=== PATIENT | female | born 1950 | race Caucasian/White ===

== ENCOUNTER 2016-06-08 17:56 | Emergency (ER) | payer OTHER ==
[2016-06-08] MEDS ORDERED: SODIUM CHLORIDE 0.9% 1,000 ML IV ONE (19:30)
== END 2016-06-08 22:18 | disposition home or self-care (01) ==
DX: R63.0 Anorexia (principal); G20 Parkinson's disease; Z85.3 Personal history of malignant neoplasm of breast

== ENCOUNTER 2016-08-03 17:44 | Emergency (ER) | payer OTHER ==
[2016-08-03] MEDS ORDERED: SODIUM CHLORIDE 0.9% 1,000 ML IV ONE (18:51)
[2016-08-03] MEDS ORDERED: BENZONATATE 100 MG CAPSULE PO ONE (21:15)
== END 2016-08-03 22:06 | disposition home or self-care (01) ==
DX: E86.0 Dehydration (principal); R63.0 Anorexia; G20 Parkinson's disease; Z85.3 Personal history of malignant neoplasm of breast; Z90.10 Acquired absence of unspecified breast and nipple
CPT/HCPCS: 36415; 51701; 51798; 80053; 81003; 83690; 85025; 96360; 99284; A9270

== ENCOUNTER 2016-08-12 13:55 | Emergency (ER) | payer OTHER ==
[2016-08-12] MEDS ORDERED: SODIUM CHLORIDE 0.9% 1,000 ML IV ONE (14:59)
== END 2016-08-12 16:24 | disposition home or self-care (01) ==
DX: R32 Unspecified urinary incontinence (principal); D72.829 Elevated white blood cell count, unspecified; G31.09 Other frontotemporal neurocognitive disorder; F02.80 Dementia in other diseases classified elsewhere, unspecified severity, without behavioral disturbance, psychotic disturbance, mood disturbance, and anxiety; Z85.3 Personal history of malignant neoplasm of breast; Z90.10 Acquired absence of unspecified breast and nipple

== ENCOUNTER 2017-05-25 14:14 | Emergency (ER) | payer MEDICARE, OTHER ==
--- NOTE | 2017-05-25 14:55 | ED Physician Documentation ---
PD HPI OPHTHO - Stated complaint Stated Complaint: BILAT EYE PX - History obtained from History obtained from: Patient - History of Present Illness Timing - onset: How many days ago (2) Timing - duration: Days (1-2) Timing - details: Abrupt onset, Still present (noted redness with discharge of right eye the past 1-2 days and now left eye starting to be irritated and red too.) Location: Both Quality / character: Burning, Aching Associated symptoms: Redness, Discharge, Matting. No: FB sensation, Photophobia , Loss of vision Contributing factors: Wears glasses. No: FB, Wears contacts Similar symptoms before: Has not had sx before Recently seen: Not recently seen Review of Systems Constitutional: denies: Fever, Chills Nose: denies: Rhinorrhea / runny nose, Congestion Throat: denies: Sore throat Respiratory: denies: Cough Skin: denies: Rash, Lesions PD PAST MEDICAL HISTORY - Past Medical History Cardiovascular: None Respiratory: None Neuro: Parkinson's, Fainting Endocrine/Autoimmune: None GI: None MEDICAL ANTHROPOLOGIST: Breast cancer Psych: Depression Musculoskeletal: None Derm: None - Past Surgical History Past Surgical History: Yes General: Cholecystectomy /MEDICAL ANTHROPOLOGIST: Mastectomy - Present Medications Home Medications: Ambulatory Orders Medication Instructions Recorded Confirmed Sertraline [Zoloft] 25 mg ORAL DAILY 06/26/15 05/25/17 Donepezil [Aricept] 10 mg PO DAILY 06/08/16 05/25/17 Megestrol Acetate 40 mg PO DAILY 05/25/17 05/25/17 Memantine [Namenda] 5 mg PO DAILY 05/25/17 05/25/17 Mirabegron [Myrbetriq] 50 mg PO DAILY 05/25/17 05/25/17 Sulfacetamide 10% Ophth Drops 2 drops EACHEYE Q2H #1 bottle 05/25/17 [Sulfamide 10% Ophth Drops] Tamoxifen 20 mg PO DAILY 05/25/17 05/25/17 - Allergies Allergies/Adverse Reactions: Allergies Allergy/AdvReac Type Severity Reaction Status Date / Time No Known Drug Allergies Allergy Verified 05/25/17 15:09 - Social History Does the pt smoke?: No Smoking Status: Never smoker Does the pt drink ETOH?: No Does the pt have substance abuse?: No - Immunizations Immunizations are current?: Yes - POLST Patient has POLST: No PD ED PE NORMAL - Vitals Vital signs reviewed: Yes - General General: Alert and oriented X 3, No acute distress, Well developed/nourished - HEENT HEENT: PERRL, EOMI, Ears normal, Pharynx benign - Neck Neck: Supple, no meningeal sign, No adenopathy PD ED PE EXPANDED - Eyes Eyes: Both eyes, Injected conj/sclera, Exudate (mostly right), Anterior chambers clear, Normal fundi. No: Conj/sclera FB Results - Vitals Vitals: Vital Signs - 24 hr 05/25/17 14:58 Temperature 36.9 C Heart Rate 85 Respiratory 16 Rate Blood Pressure 129/73 O2 Saturation 95 Oxygen O2 Source Room air Departure - Departure Disposition: 01 Home, Self Care Clinical Impression: Conjunctivitis Qualifiers: Conjunctivitis type: acute Acute conjunctivitis type: bacterial Laterality: bilateral Qualified Code(s): H10.33 - Unspecified acute conjunctivitis, bilateral Condition: Stable Record reviewed to determine appropriate education?: Yes Instructions: ED Conjunctivitis Bacterial Follow-Up: Bridgette Reynolds MD [Primary Care Provider] - Prescriptions: Sulfacetamide 10% Ophth Drops [Sulfamide 10% Ophth Drops] 2 drops EACHEYE Q2H # 1 bottle Comments: Use the antibiotic eyedrop every 2-3 hours while awake for the first 2 days in both eyes and then to the right eye 4 times a day for another 3 days for a total of 5 days. Recheck if not improving over the next couple of days. Tylenol or Ibuprofen if needed for pains. Recheck if worsening symptoms or any light sensitivity or eye pain. Discharge Date/Time: 05/25/17 15:37
[2017-05-25 15:09] VITALS: BP 129/73
== END 2017-05-25 15:37 | disposition home or self-care (01) ==
LOC: ED 14:14
DX: H10.33 Unspecified acute conjunctivitis, bilateral (principal); G20 Parkinson's disease; Z85.3 Personal history of malignant neoplasm of breast; Z90.10 Acquired absence of unspecified breast and nipple
CPT/HCPCS: 99283

== ENCOUNTER 2017-07-05 15:47 | Emergency (ER) | payer OTHER ==
--- NOTE | 2017-07-05 16:09 | ED Physician Documentation ---
History of Present Illness - Stated complaint Stated Complaint: L ARM PAIN - Chief complaint Chief Complaint: Ext Problem - History obtained from History obtained from: Family (from the d/t dementia) - History of Present Illness Timing: Last night (She is a fairly demented 66-year-old woman who is brought in accompanied by her . She has had decreased range of motion of the left arm since last night and he had concern for stroke. 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 Psych: Depression Musculoskeletal: None Derm: None - Past Surgical History Past Surgical History: Yes General: Cholecystectomy /SLUBBER TENDER: Mastectomy - Present Medications Home Medications: Ambulatory Orders Medication Instructions Recorded Confirmed Sertraline [Zoloft] 25 mg ORAL DAILY 06/26/15 05/25/17 Donepezil [Aricept] 10 mg PO DAILY 06/08/16 05/25/17 Megestrol Acetate 40 mg PO DAILY 05/25/17 05/25/17 Memantine [Namenda] 5 mg PO DAILY 05/25/17 05/25/17 Mirabegron [Myrbetriq] 50 mg PO DAILY 05/25/17 05/25/17 Sulfacetamide 10% Ophth Drops 2 drops EACHEYE Q2H #1 bottle 05/25/17 [Sulfamide 10% Ophth Drops] Tamoxifen 20 mg PO DAILY 05/25/17 05/25/17 - Allergies Allergies/Adverse Reactions: Allergies Allergy/AdvReac Type Severity Reaction Status Date / Time No Known Drug Allergies Allergy Verified 05/25/17 15:09 - Social History Does the pt smoke?: No Smoking Status: Never smoker Does the pt drink ETOH?: No Does the pt have substance abuse?: No - Immunizations Immunizations are current?: Yes - POLST Patient has POLST: No PD ED PE NORMAL - Vitals Vital signs reviewed: Yes - General General: Other (Alert and oriented to person only) - Neck Neck: Supple, no meningeal sign, No bony TTP - Extremities Extremities: Other (When I range her left arm she winces when I get her shoulder up to about 90 and complains of pain in the left shoulder. She has no pronator drift and good poll watcher strength on the left. Otherwise her stroke scale was negative with the exception of disorientation.) Results - Vitals Vitals: Vital Signs - 24 hr 07/05/17 15:55 Temperature 37.0 C Heart Rate 101 H Respiratory 16 Rate Blood Pressure 138/69 H O2 Saturation 100 Oxygen O2 Source Room air - EKG (time done) 1555 Rate: Rate (enter#) (93) Rhythm: NSR Intervals: Other (LAFB) QRS: LVH Ischemia: Normal ST segments Computer interpretation: Agree with computer - Rads (name of study) L shoulder 3v Radiology: EMP read contemporaneously (NAD) PD MEDICAL DECISION MAKING - ED course ED course: She has not been moving her arm for the last day or so. She is fairly demented so history is limited, there was a specific concern for stroke, however examination is consistent with shoulder pain without focal neurologic deficit other than her dementia. Departure - Departure Disposition: 01 Home, Self Care Clinical Impression: Left shoulder pain Qualifiers: Chronicity: acute Qualified Code(s): M25.512 - Pain in left shoulder Condition: Good Record reviewed to determine appropriate education?: Yes Instructions: ED Torn Rotator Cuff Comments: Call your doctor to arrange a follow-up appointment, make the next available appointment. In the interim, return anytime if worse or if new symptoms develop. Your blood pressure was elevated today on check into the emergency department. This does not mean that you have hypertension, it is a common phenomenon to come to the emergency department and have elevated blood pressure. I recommend that you see your primary care physician within the week to have it rechecked when you are feeling better.
[2017-07-05 16:13] VITALS: BP 138/69
--- NOTE | 2017-07-05 17:07 | XRAY Preliminary Report ---
Exam: XR SHOULDER 3 VIEW LT IMPRESSION: 1. Moderate hiatal hernia. 2. Normal left shoulder. [facility] SITE ID: [id number]
--- NOTE | 2017-07-05 17:10 | XRAY Report ---
EXAM: LEFT SHOULDER RADIOGRAPHY EXAM DATE: 07/05/2017 04:42 PM. CLINICAL HISTORY: Dementia. Left shoulder pain for one day. No known injury. COMPARISON: None. TECHNIQUE: 4 views. FINDINGS: Bones: Normal. No fracture or bone lesion. Joints: The glenohumeral and acromioclavicular joints are normal. Type II acromion. Soft tissues: Moderate hiatal hernia. No soft tissue calcifications. IMPRESSION: 1. Moderate hiatal hernia. 2. Normal left shoulder. [facility] Referring Provider Line: [phone] SITE ID: [id number]
== END 2017-07-05 17:23 | disposition home or self-care (01) ==
LOC: ED 15:47
DX: M25.512 Pain in left shoulder (principal); R03.0 Elevated blood-pressure reading, without diagnosis of hypertension; I44.4 Left anterior fascicular block; R94.31 Abnormal electrocardiogram [ECG] [EKG]; K44.9 Diaphragmatic hernia without obstruction or gangrene; F03.90 Unspecified dementia, unspecified severity, without behavioral disturbance, psychotic disturbance, mood disturbance, and anxiety; Z85.3 Personal history of malignant neoplasm of breast
CPT/HCPCS: 93005; 99283

== ENCOUNTER 2021-05-05 13:42 | Outpatient (CLI) | payer OTHER | END 2021-05-05 13:43 | disposition critical access hospital (66) | LOC: EMS 13:42 | DX: R53.1 Weakness (principal); R63.8 Other symptoms and signs concerning food and fluid intake; Z74.01 Bed confinement status | CPT/HCPCS: A0425; A0429 ==

== ENCOUNTER 2021-05-05 14:21 | Emergency (ER) | payer OTHER ==
[2021-05-05 15:33] LABS: BASOPHILS # (AUTO) 0.1 10^3/uL (0.0-0.1); BASOPHILS % (AUTO) 0.8 %; EOSINOPHILS # (AUTO) 0.1 10^3/uL (0.0-0.7); EOSINOPHILS % (AUTO) 0.5 %; HCT - HEMATOCRIT 38.2 % (37.0-47.0); HGB - HEMOGLOBIN 12.4 g/dL (12.0-16.0); LYMPHOCYTES # (AUTO) 1.9 10^3/uL (1.5-3.5); LYMPHOCYTES % (AUTO) 17.4 %; MEAN CORPUSCULAR HEMOGLOBIN 31.2 pg (27.0-31.0); MEAN CORPUSCULAR HGB CONC 32.5 g/dL (32.0-36.0); MEAN CORPUSCULAR VOLUME 96.2 fL (81.0-99.0); MEAN PLATELET VOLUME 10.1 fL (7.9-10.8); MONOCYTES # (AUTO) 0.7 10^3/uL (0.0-1.0); MONOCYTES % (AUTO) 6.5 %; NEUTROPHILS % (AUTO) 74.1 %; PLT - PLATELET COUNT 194 10^3/uL (130-450); RED BLOOD COUNT 3.97 10^6/uL (4.20-5.40); RED CELL DISTRIBUTION WIDTH 12.7 % (12.0-15.0); WHITE BLOOD COUNT 10.8 x10^3/uL (4.8-10.8)
--- NOTE | 2021-05-05 15:34 | ED Physician Documentation ---
History of Present Illness - Stated complaint Stated Complaint: WEAKNESS - Chief complaint Chief Complaint: Neuro - Additonal information Additional information: 70-year-old female was brought to the emergency department for evaluation of in creased weakness. History is obtained from the chart. Patient has a history of previous CVA with aphasia and well as frontal/temporal dementia. At baseline she has left-sided deficits, left upper extremity contracture right-sided facial droop. Per EMS the patient is typically able to transfer and pivot bed has been unable to today. EMS describes a very poor living situation. Reported that the floor of the home was covered in dog feces the patient had very poor hygiene and was also covered in feces herself. 1605: I have spoken with the Bill at the bedside. He reports that over the last few weeks patient has been getting progressively weaker. He does not desire her to be placed in a long-term facility he would like to care for her at home. 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 Psych: Depression Musculoskeletal: None Derm: None - Past Surgical History Past Surgical History: Yes General: Cholecystectomy /FENCE MANUFACTURE SUPERVISOR: Mastectomy - Present Medications Home Medications: Ambulatory Orders Medication Instructions Recorded Confirmed Sertraline [Zoloft] 25 mg ORAL DAILY 06/26/15 05/25/17 Donepezil [Aricept] 10 mg PO DAILY 06/08/16 05/25/17 Megestrol Acetate 40 mg PO DAILY 05/25/17 05/25/17 Memantine [Namenda] 5 mg PO DAILY 05/25/17 05/25/17 Mirabegron [Myrbetriq] 50 mg PO DAILY 05/25/17 05/25/17 Sulfacetamide 10% Ophth Drops 2 drops EACHEYE Q2H #1 bottle 05/25/17 [Sulfamide 10% Ophth Drops] Tamoxifen [Nolvadex] 20 mg PO DAILY 05/25/17 05/25/17 Cefpodoxime Proxetil [Vantin] 100 mg PO Q12H #14 tablet 05/05/21 - Allergies Allergies/Adverse Reactions: Allergies Allergy/AdvReac Type Severity Reaction Status Date / Time No Known Drug Allergies Allergy Verified 05/25/17 15:09 - Social History Does the pt smoke?: No Smoking Status: Never smoker Does the pt drink ETOH?: No Does the pt have substance abuse?: No - Immunizations Immunizations are current?: Yes - POLST Patient has POLST: No PD ED PE EXPANDED - General General: Alert, Disheveled, poorly kept (Feet very dirty with feces on the bottom. Poor hygiene.) - Cardiac Cardiac: Regular Rate, Pedal strong equal, Cap refill < 2 sec - Respiratory Respiratory: Clear to ausultation morgan. No: Distress, Labored - Abdomen Abdomen: Normal Bowel sounds. No: Tender to palpation - Derm Derm: Normal color, Warm and dry, Other (Left buttock a sacral ulceration is noted. Some mild surrounding erythema. Old healing ulcers seen on the sacrum as well.) - Extremities Extremities: Pedal edema bilateral, Pedal Pulses Present - Neuro Neuro: No: CNII-XII intact (Right-sided facial droop at baseline. Left upper extremity contracted and weak at baseline.) - GCS Eye Opening: Spontaneous Motor: Obeys Commands Verbal: Oriented Total: 15 Results - Vitals Vitals: Vital Signs - 24 hr 05/05/21 05/05/21 05/05/21 14:27 15:42 17:19 Temperature 36.4 C L 36.6 C 36.6 C Heart Rate 93 85 81 Respiratory 16 18 19 Rate Blood Pressure 157/102 H 130/100 H 140/98 H O2 Saturation 100 100 100 05/05/21 18:05 Temperature 36.8 C Heart Rate 80 Respiratory 16 Rate Blood Pressure 140/70 H O2 Saturation 98 Oxygen O2 Source Room air - EKG (time done) 1704 Rate: Rate (enter#) (80) Rhythm: NSR [place]: Normal Intervals: Prolonged QT, RBBB, Other (LAFB) QRS: LVH, Poor R wave progression Ischemia: Normal ST segments Compare to prior EKG: Old EKG unavailable Computer interpretation: Agree with computer - Labs Labs: Laboratory Tests 05/05/21 05/05/2121 15:26 15:26 15:26 WBC 10.8 RBC 3.97 L Hgb 12.4 Hct 38.2 MCV 96.2 MCH 31.2 H MCHC 32.5 RDW 12.7 Plt Count 194 MPV 10.1 Neut # (Auto) 8.0 H Lymph # (Auto) 1.9 [place] # (Auto) 0.7 Eos # (Auto) 0.1 Baso # (Auto) 0.1 Absolute Nucleated RBC 0.00 Nucleated RBC % 0.0 Sodium 141 Potassium 3.9 Chloride 108 Carbon Dioxide 24 Anion Gap 9.0 BUN 23 H Creatinine 1.0 Estimated GFR (MDRD) 55 L Glucose 103 H Lactic Acid Calcium 8.9 Total Bilirubin 0.6 AST 45 H ALT 75 H Alkaline Phosphatase 88 Troponin I High Sens Total Protein 6.7 Albumin 3.0 L Globulin 3.7 Albumin/Globulin Ratio 0.8 L Lipase 43 TSH 1.01 Urine Color Urine Clarity Urine pH Ur Specific [place] Urine Protein Urine Glucose (UA) Urine Ketones Urine Occult Blood Urine Nitrite Urine Bilirubin Urine Urobilinogen Ur Leukocyte Esterase Urine RBC Urine WBC Ur Squamous Epith Cells Urine Bacteria Ur Microscopic Review Urine Culture Comments Urine Opiates Screen Ur Oxycodone Screen Urine Methadone Screen Ur Propoxyphene Screen Ur Barbiturates Screen Ur Tricyclics Screen Ur Phencyclidine Scrn Ur Amphetamine Screen U Methamphetamines Scrn U Benzodiazepines Scrn Urine Cocaine Screen U Cannabinoids Screen Ethyl Alcohol < 5.0 05/05/21 05/05/21 05/05/21 15:26 15:26 15:56 WBC RBC Hgb Hct MCV MCH MCHC RDW Plt Count MPV Neut # (Auto) Lymph # (Auto) [place] # (Auto) Eos # (Auto) Baso # (Auto) Absolute Nucleated RBC Nucleated RBC % Sodium Potassium Chloride Carbon Dioxide Anion Gap BUN Creatinine Estimated GFR (MDRD) Glucose Lactic Acid 1.9 Calcium Total Bilirubin AST ALT Alkaline Phosphatase Troponin I High Sens 11.8 Total Protein Albumin Globulin Albumin/Globulin Ratio Lipase TSH Urine Color YELLOW Urine Clarity HAZY Urine pH 5.5 Ur Specific [place] 1.020 Urine Protein NEGATIVE Urine Glucose (UA) NEGATIVE Urine Ketones NEGATIVE Urine Occult Blood SMALL H Urine Nitrite POSITIVE H Urine Bilirubin NEGATIVE Urine Urobilinogen 0.2 (NORMAL) Ur Leukocyte Esterase NEGATIVE Urine RBC 0-5 Urine WBC 6-10 H Ur Squamous Epith Cells FEW Squamous Urine Bacteria Many H Ur Microscopic Review INDICATED Urine Culture Comments INDICATED Urine Opiates Screen NEGATIVE Ur Oxycodone Screen NEGATIVE Urine Methadone Screen NEGATIVE Ur Propoxyphene Screen NEGATIVE Ur Barbiturates Screen NEGATIVE Ur Tricyclics Screen NEGATIVE Ur Phencyclidine Scrn NEGATIVE Ur Amphetamine Screen NEGATIVE U Methamphetamines Scrn NEGATIVE U Benzodiazepines Scrn NEGATIVE Urine Cocaine Screen NEGATIVE U Cannabinoids Screen NEGATIVE Ethyl Alcohol - Rads (name of study) CXR Radiology: Final report received (Moderate sized hiatal hernia slightly increased from prior study. ) CT head Radiology: Final report received (No CT evidence of acute intracranial pathology. Marked diffuse cerebral atrophy and extensive white matter chronic small vessel ischemic changes.) PD MEDICAL DECISION MAKING - ED course Complexity details: reviewed results, re-evaluated patient, considered differential, d/w patient ED course: 70-year-old female who has an underlying history of frontal temporal lobe dementia as well as previous CVAs with noted left-sided deficits and contractures is brought to the emergency department for evaluation of increased weakness. Lengthy discussion with her at the bedside reveals that she is essentially bedbound at this time however over the last week she has had increasing difficulty with movement. She presents with soiled of feces and also has left buttock and sacral ulcers in various stages of healing. Her recognizes that she is beginning to require more care than he can reasonably manage at home. He admits that the home is quite filthy. However he does desire to take her back home. no admittable diagnosis Screening labs today show no leukocytosis. No fevers. A CT of the head shows nothing acute. X-ray is not consistent with pneumonia. I did do an in and out catheterization which is consistent with a urinary tract infection and she will be started on Cefpodoxime. Cx is pending. Patient was given first dose of ceftriaxone here in the ER. Patient was also assessed by social work. Referral will be placed for [facility]. EMS is making an APS referral for their concerns of the poor living conditions at home. Patient was also briefly seen by social work. Please see their note Emergent return precautions were discussed with the at the bedside for a cutely altered mentation, fevers, worsening or progression of her bedsores. Advise very close follow-up with her primary care provider. Departure - Departure Disposition: 01 Home, Self Care Clinical Impression: Sacral decubitus ulcer, stage III UTI (urinary tract infection) Qualifiers: Urinary tract infection type: acute cystitis Hematuria presence: without hematuria Qualified Code(s): N30.00 - Acute cystitis without hematuria Dementia Qualifiers: Dementia type: unspecified type Dementia behavioral disturbance: without be havioral disturbance Qualified Code(s): F03.90 - Unspecified dementia without behavioral disturbance Condition: Stable Record reviewed to determine appropriate education?: Yes Follow-Up: Bridgette Reynolds MD [Primary Care Provider] - Prescriptions: Cefpodoxime Proxetil [Vantin] 100 mg PO Q12H #14 tablet Comments: Joan was seen in the ER today for concerns of increasing weakness. It appears that for quite some time she has basically become bedbound. The labs that we have found today show that she has a urinary tract infection. Please fill the prescription for the Cefpodoxime. This was sent to the [facility] in [place]. The CT of your head does not show anything new though it is obvious over time her dementia and previous strokes have caused some generalized shrinking of her brain. The chest x-ray does not show a pneumonia. EMS was concerned about the sanitary conditions for Joan at home. They have reported to us that they are going to place an Adult Protective Services referral. It is important that you discuss this ED visit with her primary care provider. The care for Joan over time will only increase and you may want to consider utilizing the [facility] senior resources or consider whether or not long-term facility placement in the long-term is going to be important. Any point you find that she develops fevers, has worsening symptoms, uncontrolled vomiting then please return immediately to the ER for a second evaluation. Discharge Date/Time: 05/05/21 18:09
[2021-05-05 15:45] LABS: ALBUMIN/GLOBULIN RATIO 0.8 (1.0-2.2); ALKALINE PHOSPHATASE 88 IU/L (42-121); ALT ALANINE AMINOTRANSFERASE 75 IU/L (10-60); AST ASPARTATE AMINOTRANSFERASE 45 IU/L (10-42); BILIRUBIN,TOTAL 0.6 mg/dL (0.2-1.0); BUN - BLOOD UREA NITROGEN 23 mg/dL (6-20); CALCIUM 8.9 mg/dL (8.5-10.3); CARBON DIOXIDE - CO2 24 mmol/L (21-32); CHLORIDE 108 mmol/L (101-111); ETOH - ETHANOL < 5.0 mg/dL; GFR - MDRD 55 (>89); GLUCOSE 103 mg/dL (70-100); LIPASE 43 U/L (22-51); POTASSIUM 3.9 mmol/L (3.5-5.0); SODIUM 141 mmol/L (135-145); TOTAL PROTEIN 6.7 g/dL (6.7-8.2)
--- NOTE | 2021-05-05 15:58 | XRAY Report ---
PROCEDURE: Chest 1 View X-Ray INDICATIONS: Chest pain TECHNIQUE: One view of the chest was acquired. COMPARISON: 09/21/2013 FINDINGS: Surgical changes and devices: None. Lungs and pleura: No pleural effusions or pneumothorax. Lungs are clear. Mediastinum: Moderate sized hiatal hernia slightly increased to prior. Mediastinal contours otherwise normal. Heart size is normal. Bones and chest wall: No suspicious bony lesions. Overlying soft tissues appear unremarkable. IMPRESSION: Moderate sized hiatal hernia slightly increased from prior study. This represents a potential source of chest pain. Otherwise normal study. Reviewed by: Oleg Morejon MD on 05/05/2021 2:57 PM [place] Approved by: Oleg Morejon MD on 05/05/2021 2:57 PM [facility] Station ID: [id number]
[2021-05-05 16:01] LABS: MUDS CUTOFF CONCENTRATIONS CUTOFF CONC BELOW:
[2021-05-05 16:04] LABS: BILIRUBIN,URINE NEGATIVE (NEGATIVE); GLUCOSE, URINE (UA) NEGATIVE (NEGATIVE); KETONES,URINE (UA) NEGATIVE (NEGATIVE); LEUKOCYTE ESTERASE, URINE NEGATIVE (NEGATIVE); NITRITE,URINE POSITIVE (NEGATIVE); OCCULT BLOOD,URINE SMALL (NEGATIVE); PH,URINE 5.5 PH (5.0-7.5); PROTEIN,URINE NEGATIVE (NEGATIVE); UROBILINOGEN,URINE 0.2 (NORMAL) E.U./dL (NORMAL)
[2021-05-05 16:06] LABS: CLARITY,URINE HAZY (CLEAR)
[2021-05-05 16:17] LABS: BACTERIA,URINE Many /HPF (None Seen); RBC,URINE 0-5 /HPF (0-5); SQUAMOUS EPITHELIAL CELL,UR FEW Squamous (<= Few)
[2021-05-05] MEDS ORDERED: LIDOCAINE 1% 2 ML VIAL MC ONE (16:22)
[2021-05-05] MEDS ORDERED: cefTRIAXone 1 GM VIAL IM STA (16:22)
[2021-05-05 16:25] LABS: AMPHETAMINE SCREEN,URINE NEGATIVE (NEGATIVE); BARBITURATE SCREEN,UR NEGATIVE (NEGATIVE); BENZODIAZEPINES SCREEN, URINE NEGATIVE (NEGATIVE); COCAINE SCREEN URINE NEGATIVE (NEGATIVE); METHADONE SCREEN, URINE NEGATIVE (NEGATIVE); METHAMPHETAMINES SCREEN, URINE NEGATIVE (NEGATIVE); OPIATE SCREEN, URINE NEGATIVE (NEGATIVE); OXYCODONE SCREEN, URINE NEGATIVE (NEGATIVE); PROPOXYPHENE SCREEN, URINE NEGATIVE (NEGATIVE); THC CANNABINOID SCREEN, URINE NEGATIVE (NEGATIVE); TRICYCLIC ANTIDEPRESSANT,URINE NEGATIVE (NEGATIVE)
--- NOTE | 2021-05-05 16:47 | CT Report ---
PROCEDURE: HEAD WO INDICATIONS: increased wekness TECHNIQUE: Noncontrast 4.5 mm thick angled axial sections acquired from the foramen magnum to the vertex. For r adiation dose reduction, the following was used: automated exposure control, adjustment of mA and/or kV according to patient size. COMPARISON: 07/31/2015 FINDINGS: Image quality: Excellent. CSF spaces: Basal cisterns are patent. No extra-axial fluid collections. The ventricles are symmet pankaj in size and shape. Brain: No intracranial bleeds or masses. There is cerebral volume loss for age, with resultant vent ricular and sulcal prominence. There are periventricular and deep white matter chronic small vessel ischemic changes. There is intracranial internal carotid artery atherosclerosis. Skull and face: Calvarium and visualized facial bones appear intact, without suspicious lesions. Sinuses: Visualized sinuses and mastoids are clear. IMPRESSION: 1. No CT evidence of acute intracranial pathology. 2. Marked diffuse cerebral atrophy and extensive white matter chronic small vessel ischemic changes. Reviewed by: Travis Bourne MD on 05/05/2021 4:46 PM PST Approved by: Travis Bourne MD on 05/05/2021 4:46 PM PST Station ID: [id number]
[2021-05-05 18:10] VITALS: BP 140/70
== END 2021-05-05 18:09 | disposition home or self-care (01) ==
LOC: EDUNIT# → ED 14:21
DX: N30.00 Acute cystitis without hematuria (principal); R53.1 Weakness; G31.09 Other frontotemporal neurocognitive disorder; F02.80 Dementia in other diseases classified elsewhere, unspecified severity, without behavioral disturbance, psychotic disturbance, mood disturbance, and anxiety; L89.153 Pressure ulcer of sacral region, stage 3; L89.323 Pressure ulcer of left buttock, stage 3; I69.320 Aphasia following cerebral infarction; I69.392 Facial weakness following cerebral infarction; I69.354 Hemiplegia and hemiparesis following cerebral infarction affecting left non-dominant side; I45.2 Bifascicular block; K44.9 Diaphragmatic hernia without obstruction or gangrene; Z74.01 Bed confinement status
CPT/HCPCS: 36415; 51701; 80053; 80306; 80320; 81001; 81003; 83605; 83690; 84443; 84484; 85025; 87040; 87086; 87181; 93005; 99283; 99284

== ENCOUNTER 2021-05-20 14:40 | Outpatient (CLI) | payer OTHER | END 2021-05-20 14:41 | disposition critical access hospital (66) | LOC: EMS 14:40 | DX: Z74.2 Need for assistance at home and no other household member able to render care (principal) | CPT/HCPCS: A0425; A0429 ==

== ENCOUNTER 2021-05-20 15:21 | Inpatient (IN) | payer OTHER ==
[2021-05-20] MEDS ORDERED: SODIUM CHLORIDE 0.9% 1,000 ML IV STA (15:56)
--- NOTE | 2021-05-20 16:00 | ED Physician Documentation ---
History of Present Illness - Stated complaint Stated Complaint: DEMENTIA - Chief complaint Chief Complaint: General - Additonal information Additional information: 70-year-old female is brought to the emergency department for evaluation of her physical health as well as the inability of her to care for her at home. 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 I saw this patient on 05 May. At that time her was having increased difficulty with her mobility however he very much desired to take her home. Home health visited today and found that she was poorly cared for and likely had been on her couch for a number of weeks. The today is acquiescent to snf or long-term care placement. Patient is aphasic and unable to participate in history. In conversation with her at the bedside he reports that over the last few weeks she has had very little intake. She is no longer swallowing foods adequately. meds: Sertraline 25 mg daily, memantine 10 mg twice daily, donezepil 10 mg every afternoon, tamoxifen 200 mg daily, daily vitamin D Review of Systems Unable to obtain: Other (chart) PD PAST MEDICAL HISTORY - Past Medical History Cardiovascular: None Respiratory: None Endocrine/Autoimmune: None GI: None CUSTOMS DIRECTOR: Breast cancer Psych: Depression Musculoskeletal: None Derm: None - Past Surgical History Past Surgical History: Yes General: Cholecystectomy /CUSTOMS DIRECTOR: Mastectomy - Present Medications Home Medications: Ambulatory Orders Medication Instructions Recorded Confirmed Sertraline [Zoloft] 25 mg ORAL DAILY 06/26/15 05/25/17 Donepezil [Aricept] 10 mg PO DAILY 06/08/16 05/25/17 Megestrol Acetate 40 mg PO DAILY 05/25/17 05/25/17 Memantine [Namenda] 5 mg PO DAILY 05/25/17 05/25/17 Mirabegron [Myrbetriq] 50 mg PO DAILY 05/25/17 05/25/17 Sulfacetamide 10% Ophth Drops 2 drops EACHEYE Q2H #1 bottle 05/25/17 [Sulfamide 10% Ophth Drops] Tamoxifen [Nolvadex] 20 mg PO DAILY 05/25/17 05/25/17 Cefpodoxime Proxetil [Vantin] 100 mg PO Q12H #14 tablet 05/05/21 - Allergies Allergies/Adverse Reactions: Allergies Allergy/AdvReac Type Severity Reaction Status Date / Time No Known Drug Allergies Allergy Verified 05/25/17 15:09 - Social History Does the pt smoke?: No Smoking Status: Never smoker Does the pt drink ETOH?: No Does the pt have substance abuse?: No - Immunizations Immunizations are current?: Yes - POLST Patient has POLST: No PD ED PE EXPANDED - General General: Alert, Other (Appears chronically ill. Very poor oral and body hygiene. Repetitive movements noted of the right upper extremity as well as constant smacking of her mouth.) - HEENT HEENT: Atraumatic. No: Dental decay (very poor oral hygeine) - Neck Neck: Supple w/out meningeal sx. No: Adenopathy - Cardiac Cardiac: Regular Rate, Radial strong equal, Pedal strong equal, Cap refill < 2 sec, Other (bilateral power extremity 1+ ). No: Murmur Present - Respiratory Respiratory: Clear to ausultation morgan. No: Distress, Labored - Abdomen Abdomen: Normal Bowel sounds, Tender to palpation - Derm Derm: Other (right medial heel with black eschar, unstabale ulcer; sacral decub uklcer with exposed muscle; mild surrounding erythema) - Neuro Neuro: Confused - GCS Eye Opening: Spontaneous Motor: Withdraws to Pain Verbal: None Total: 9 Results - Vitals Vitals: Vital Signs - 24 hr 05/20/21 05/20/21 15:30 16:06 Temperature 36.6 C Heart Rate 103 H 96 Respiratory 16 16 Rate Blood Pressure 109/81 H 126/76 O2 Saturation 98 99 Oxygen O2 Source Room air - Labs Labs: Laboratory Tests 05/20/21 05/20/21 16:18 16:18 WBC 18.0 H RBC 4.62 Hgb 14.6 Hct 46.4 MCV 100.4 H MCH 31.6 H MCHC 31.5 L RDW 14.2 Plt Count 191 MPV 11.3 H Neut # (Auto) 13.3 H Lymph # (Auto) 3.3 Jenkins # (Auto) 0.9 Eos # (Auto) 0.2 Baso # (Auto) 0.1 Absolute Nucleated RBC 0.00 Nucleated RBC % 0.0 Sodium 160 H* Potassium 3.7 Chloride 128 H* Carbon Dioxide 23 Anion Gap 9.0 BUN 54 H Creatinine 1.2 H Estimated GFR (MDRD) 45 L Glucose 149 H Calcium 9.3 Total Bilirubin 1.0 AST 59 H ALT 132 H Alkaline Phosphatase 105 Total Creatine Kinase 134 Total Protein 6.9 Albumin 2.9 L Globulin 4.0 Albumin/Globulin Ratio 0.7 L Lipase 65 H - Rads (name of study) CXR Radiology: Final report received (moderate size hiatal hernia. Otherwise no acute findings.) PD MEDICAL DECISION MAKING - ED course Complexity details: reviewed old records, reviewed results, re-evaluated patient, d/w patient, d/w family ED course: 70-year-old female who has a history of frontal temporal lobe dementia as well as previous CVA with left-sided deficits is brought to the emergency department after home health found her at home in very poor condition. She was seen in this ER about 3 weeks ago. At that time her had reported that he has having increasing difficulty caring for her but he really wanted to try to keep her at home. On presentation she is alert but smacking her lips. She has a contracted left upper extremity. We do note a sacral decubitus ulcer as well is an unstageable right medial heel ulcer. Her had reported that she has had very little oral intake over the last few weeks. She presents with no fever but does have a modest leukocytosis. We also note that she is very dehydrated with a sodium of 160 and an elevated chloride. She also has developed some prerenal injury. She was given a liter of IV fluid here in the emergency department. She was then written for D5 one half normal saline at a rate of 150 mils per hour. Given the severe dehydration the patient was presented for admission to Dr. Mcelroy to who graciously agrees to evaluate the patient. Her has indicated to me that he would like her to be DNR no intubation. Departure - Departure Disposition: 68 [facility] DC/Xfer Clinical Impression: Dehydration, Hypernatremia, Sacral decubitus ulcer, stage III Discharge Date/Time: 05/20/21 18:16
[2021-05-20 16:24] LABS: BASOPHILS # (AUTO) 0.1 10^3/uL (0.0-0.1); BASOPHILS % (AUTO) 0.8 %; EOSINOPHILS # (AUTO) 0.2 10^3/uL (0.0-0.7); HCT - HEMATOCRIT 46.4 % (37.0-47.0); HGB - HEMOGLOBIN 14.6 g/dL (12.0-16.0); LYMPHOCYTES # (AUTO) 3.3 10^3/uL (1.5-3.5); LYMPHOCYTES % (AUTO) 18.2 %; MEAN CORPUSCULAR HEMOGLOBIN 31.6 pg (27.0-31.0); MEAN CORPUSCULAR HGB CONC 31.5 g/dL (32.0-36.0); MEAN CORPUSCULAR VOLUME 100.4 fL (81.0-99.0); MEAN PLATELET VOLUME 11.3 fL (7.9-10.8); MONOCYTES # (AUTO) 0.9 10^3/uL (0.0-1.0); MONOCYTES % (AUTO) 4.7 %; NEUTROPHILS # (AUTO) 13.3 10^3/uL (1.5-6.6); NEUTROPHILS % (AUTO) 74.2 %; PLT - PLATELET COUNT 191 10^3/uL (130-450); RED BLOOD COUNT 4.62 10^6/uL (4.20-5.40); RED CELL DISTRIBUTION WIDTH 14.2 % (12.0-15.0)
[2021-05-20] MEDS ORDERED: cefTRIAXone 1 GM VIAL IVP STA (16:27)
[2021-05-20 16:41] LABS: ALBUMIN 2.9 g/dL (3.2-5.5); ALBUMIN/GLOBULIN RATIO 0.7 (1.0-2.2); CALCIUM 9.3 mg/dL (8.5-10.3); CREATININE 1.2 mg/dL (0.4-1.0); POTASSIUM 3.7 mmol/L (3.5-5.0); TOTAL PROTEIN 6.9 g/dL (6.7-8.2)
[2021-05-20] MEDS ORDERED: ONDANSETRON 4 MG/2 ML VIAL IVP PRN (16:56)
[2021-05-20] MEDS ORDERED: DEXTROSE IV STA (16:56)
[2021-05-20] MEDS ORDERED: ACETAMINOPHEN 325 MG TABLET PO PRN (16:56)
[2021-05-20] MEDS ORDERED: NACL IV STA (16:56)
[2021-05-20] MEDS ORDERED: SODIUM CHLORIDE FLUSH 0.9% 10 ML SYRINGE IVP PRN (16:56)
--- NOTE | 2021-05-20 16:59 | XRAY Report ---
PROCEDURE: Chest 1 View X-Ray INDICATIONS: Chest pain TECHNIQUE: One view of the chest was acquired. COMPARISON: 05/05/2021 FINDINGS: Surgical changes and devices: None. Lungs and pleura: No pleural effusions or pneumothorax. Lungs are clear. Mediastinum: Mediastinal contours appear normal. Heart size is normal. Moderate sized hiatal herni a. Bones and chest wall: No suspicious bony lesions. Overlying soft tissues appear unremarkable. IMPRESSION: Moderate-sized hiatal hernia which could represent a source of chest pain. Otherwise no acute finding . Reviewed by: Oleg Morejon MD on 05/20/2021 4:58 PM [facility] Approved by: Oleg Morejon MD on 05/20/2021 4:58 PM PST Station ID: [id number]
[2021-05-20] MEDS ORDERED: DEXTROSE 5%-0.45% NACL 1,000 ML IV SCH ×2 (17:00→21:00)
--- NOTE | 2021-05-20 17:02 | HISTORY & PHYSICAL EXAMINATION ---
Chief Complaint - Chief Complaint Chief Complaint: dehydration, History of Present Illness - Admitted From Admitted From:: [facility] ED - History Obtained From Records Reviewed: yes History obtained from: patient's Exam Limitations: severe/ progressive Frontotemporal dementia - History of Present Illness HPI Comment/Other: Patient is a 70-year-old female with frontotemporal dementia diagnosed in 2013 who was brought to the ED via EMS. Home health nurse with [facility] came to the patient's house for the initial visit and upon seeing the state in which the patient was immediately called 911 to bring the patient to the emergency department for evaluation. The patient lives with her who has been attempting to take care of her by himself to this point. Since her diagnosis of frontotemporal dementia in 2013 the patient's health and overall clinical status has significantly declined. She is bedbound and nonverbal. Her reports that she has been unable to feed herself in the past 3 weeks. He has been attempting to feed her but she is barely unable to ingest anything. With attempts at feeding she has also been coughing. Upon presentation patient was very dehydrated and disheveled. She has stage III decubitus ulcers in the sacral area, ulcers on her heels. It appears patient is not really able to recognize family as there any no cues/ signs to indicate awareness to her surrounding. She is unable to communicate or express and need. Work-up in the ED included a BMP which showed a creatinine of 1.2 and a sodium level of 160. Had white blood cell count of 18. She was presented for admission for further treatment. History - Past Medical History Cardiovascular: reports: None Respiratory: reports: None Endocrine/Autoimmune: reports: None GI: reports: None CUSTOMER ENGINEER: reports: Breast cancer Psych: reports: Depression Musculoskeletal: reports: None Derm: reports: None MRSA Hx?: No - Past Surgical History General: reports: Cholecystectomy /CUSTOMER ENGINEER: reports: Mastectomy - POLST Patient has POLST: No Meds/Allgy - Home Medications Home Medications: Ambulatory Orders Medication Instructions Recorded Confirmed Sertraline [Zoloft] 25 mg ORAL DAILY 06/26/15 05/25/17 Donepezil [Aricept] 10 mg PO DAILY 06/08/16 05/25/17 Megestrol Acetate 40 mg PO DAILY 05/25/17 05/25/17 Memantine [Namenda] 5 mg PO DAILY 05/25/17 05/25/17 Mirabegron [Myrbetriq] 50 mg PO DAILY 05/25/17 05/25/17 Sulfacetamide 10% Ophth Drops 2 drops EACHEYE Q2H #1 bottle 05/25/17 [Sulfamide 10% Ophth Drops] Tamoxifen [Nolvadex] 20 mg PO DAILY 05/25/17 05/25/17 Cefpodoxime Proxetil [Vantin] 100 mg PO Q12H #14 tablet 05/05/21 - Allergies Allergies/Adverse Reactions: Allergies Allergy/AdvReac Type Severity Reaction Status Date / Time No Known Drug Allergies Allergy Verified 05/25/17 15:09 Review of Systems - Other Findings Other Findings: A 12 point review of system is limited because the patient is unable to provide owing to her current clinical presentation with frontotemporal dementia Exam - Vital Signs Vital Signs: Vital Signs x48h Temp Pulse Resp BP Pulse Ox 05/20/21 16:06 96 16 126/76 99 05/20/21 15:30 36.6 C 103 H 16 109/81 H 98 - Physical Exam General Appearance: positive: No acute distress, Other (Awake and alert but not oriented to place time or reason. Does not seem to recognize family. Disheveled. Contracture and hands.) Eyes Bilateral: positive: PERRL, EOMI ENT: positive: Dry mucous membranes Neck: positive: No JVD, Trachea midline Respiratory: positive: Chest non-tender, No respiratory distress, Breath sounds nml. negative: Wheezes, Rales, Rhonchi Cardiovascular: positive: Regular rate & rhythm, No murmur Abdomen: positive: Non-tender, No organomegaly, Nml bowel sounds, No distention. negative: Guarding, Rebound Skin: positive: Dry, Decubitus (sacral. ulcers on heels) Extremities: positive: Other (contracture in left hand) Neurologic/Psychiatric: positive: Disoriented to person, Disoriented to place, D isoriented to time, Other (flat affect, nonverbal) Conclusion/Plan - Problem List (1) Hypernatremia Conclusion/Plan: Sodium level was 160. This is secondary to dehydration related to progressive frontaltemporal dementia Patient has not been eating or drinking much in the past 3 weeks Patient was given 1 L bolus of normal saline in the ED. Maintenance fluids of D5 plus half normal saline ordered at 150ml/hr. (2) Dehydration Conclusion/Plan: This is secondary to dehydration related to progressive frontaltemporal dementia Patient has not been eating or drinking much in the past 3 weeks Patient was given 1 L bolus of normal saline in the ED. Maintenance fluids of D5 plus half normal saline ordered at 150ml/hr. (3) Acute kidney injury Conclusion/Plan: Creatinine was 1.2, BUN 54 and estimated GFR 45. This is secondary to dehydration related to progressive frontaltemporal dementia Patient has not been eating or drinking much in the past 3 weeks Patient was given 1 L bolus of normal saline in the ED. Maintenance fluids of D5 plus half normal saline ordered at 150ml/hr. (4) Frontotemporal dementia Conclusion/Plan: Patient was diagnosed in 2013. High clinical condition has significantly deteriorated over the past 7 years. She is bedbound at this point. As a result she has stage III sacral decubitus ulcers She is unable to feed herself and presented significantly dehydrated with a sodi um level of 160. After admission to the med/surgical floor and further discussion with the patient's . He requested the patient be made comfort measures. (5) Sacral decubitus ulcer, stage III Conclusion/Plan: Due to being bedbound. Despite 's efforts to take care of her, they have not been adequate to meet the patient's needs. - Lab Results Fish Bones: 05/21/21 04:44 05/21/21 04:44 Core Measures - Anticipated LOS I expect patient to be DC'd or transferred within 96 hours.: Yes - DVT/VTE - Prophylaxis VTE/DVT Device ordered at admit?: Yes
[2021-05-20 17:46] LABS: BILIRUBIN,URINE NEGATIVE (NEGATIVE); GLUCOSE, URINE (UA) NEGATIVE (NEGATIVE); KETONES,URINE (UA) NEGATIVE (NEGATIVE); LEUKOCYTE ESTERASE, URINE NEGATIVE (NEGATIVE); NITRITE,URINE NEGATIVE (NEGATIVE); OCCULT BLOOD,URINE SMALL (NEGATIVE); PH,URINE 5.5 PH (5.0-7.5); PROTEIN,URINE NEGATIVE (NEGATIVE); UROBILINOGEN,URINE 0.2 (NORMAL) E.U./dL (NORMAL)
[2021-05-20 17:59] LABS: BACTERIA,URINE None Seen /HPF (None Seen); CLARITY,URINE CLEAR (CLEAR); RBC,URINE 0-5 /HPF (0-5); SQUAMOUS EPITHELIAL CELL,UR RARE Squamous (<= Few); WBC,URINE 0-3 /HPF (0-5)
[2021-05-20 19:00] LABS: B. PARAPERTUSSIS- RESP PCR PAN NOT DETECTED; B. PERTUSSIS- RESP PCR PANEL NOT DETECTED; C. PNEUMONIAE- RESP PCR PANEL NOT DETECTED; CORONAVIRUS 229E-RESP PCR NOT DETECTED; CORONAVIRUS HKU1-RESP PCR NOT DETECTED; CORONAVIRUS NL63-RESP PCR NOT DETECTED; CORONAVIRUS OC43-RESP PCR NOT DETECTED; HUMAN METAPNEUMOVIRUS NOT DETECTED; INFLUENZA A- RESP PCR PANEL NOT DETECTED; INFLUENZA B - RESP PCR PANEL NOT DETECTED; M. PNEUMONIAE- RESP PCR PANEL NOT DETECTED; PARAINFLUENZA VIRUS 1 NOT DETECTED; PARAINFLUENZA VIRUS 2 NOT DETECTED; PARAINFLUENZA VIRUS 3 NOT DETECTED; PARAINFLUENZA VIRUS 4 NOT DETECTED; RHINOVIRUS/ENTEROVIRUS NOT DETECTED; RSV- RESP PCR PANEL NOT DETECTED; SARS-CoV-2 -RESP PCR PANEL NOT DETECTED
[2021-05-20] MEDS: SODIUM CHLORIDE FLUSH 0.9% 10 ML SYRINGE IVP SCH ×2 (23:23→23:53)
[2021-05-21 04:59] LABS: BASOPHILS # (AUTO) 0.1 10^3/uL (0.0-0.1); BASOPHILS % (AUTO) 0.8 %; EOSINOPHILS # (AUTO) 0.2 10^3/uL (0.0-0.7); EOSINOPHILS % (AUTO) 1.2 %; HCT - HEMATOCRIT 41.7 % (37.0-47.0); HGB - HEMOGLOBIN 13.1 g/dL (12.0-16.0); LYMPHOCYTES # (AUTO) 3.3 10^3/uL (1.5-3.5); LYMPHOCYTES % (AUTO) 22.7 %; MEAN CORPUSCULAR HEMOGLOBIN 31.7 pg (27.0-31.0); MEAN CORPUSCULAR HGB CONC 31.4 g/dL (32.0-36.0); MEAN PLATELET VOLUME 10.8 fL (7.9-10.8); MONOCYTES # (AUTO) 0.6 10^3/uL (0.0-1.0); MONOCYTES % (AUTO) 4.4 %; NEUTROPHILS # (AUTO) 10.1 10^3/uL (1.5-6.6); NEUTROPHILS % (AUTO) 70.1 %; PLT - PLATELET COUNT 157 10^3/uL (130-450); RED BLOOD COUNT 4.13 10^6/uL (4.20-5.40); RED CELL DISTRIBUTION WIDTH 14.1 % (12.0-15.0); WHITE BLOOD COUNT 14.4 x10^3/uL (4.8-10.8)
[2021-05-21 05:06] LABS: CALCIUM 8.4 mg/dL (8.5-10.3); POTASSIUM 3.3 mmol/L (3.5-5.0)
--- NOTE | 2021-05-21 07:48 | PROVIDER PROGRESS NOTE ---
Assessment/Plan - Problem List (1) Hypernatremia Assessment/Plan: Patient is currently on D5 plus half normal saline +20 mEq of potassium chloride at 125 mL/h. We will continue this treatment for now until discussion with hospice care and transition to hospice care (2) Dehydration Assessment/Plan: Patient is currently on D5 plus half normal saline +20 mEq of potassium chloride at 125 mL/h. We will continue this treatment for now until discussion with hospice care and transition to hospice care (3) Acute kidney injury Assessment/Plan: Patient is currently on D5 plus half normal saline +20 mEq of potassium chloride at 125 mL/h. We will continue this treatment for now until discussion with hospice care and transition to hospice care (4) Frontotemporal dementia Assessment/Plan: Severe/progressive. After discussion with the patient's He requested the patient be comfort care. Patient will be switched to comfort care. We will contact the hospice team on 05/23/2021. - Current Meds Current Meds: Current Medications Generic Name Dose Route Start Last Admin Trade Name Freq PRN Reason Stop Dose Admin Sodium Chloride 10 ml 05/20/21 17:00 05/20/21 23:53 Sodium Chloride Flush 0.9% 10 Ml Syringe IVP 10 ml 0100,0900,1700 SAVANNA Administration - Lab Result Fish Bone Diagrams: 05/21/21 04:44 05/21/21 04:44 - Additional Planning My Orders: My Active Orders 05/20/21 16:56 Oxygen Therapy [RC] .PRN Acetaminophen [Tylenol] 650 mg PO Q4HR PRN Ondansetron Inj [Zofran Inj] 4 mg IVP Q6HR PRN Sodium Chloride Flush 0.9% [Normal Saline Flush 0.9%] 10 ml IVP PRN PRN 05/20/21 16:57 Activity Orders [RC] Q2HR IO [RC] IOSHIFT Initiate Bowel Care Protocol [RC] .protocol Initiate Line Care Protocol [RC] QSHIFT Initiate Personal Care Protoco [RC] .protocol Vital Signs [RC] 0800,1600,0000 Condition of Patient [OTHERS] Routine DVT Prophylaxis [OTHERS] Routine 05/20/21 17:00 Sodium Chloride Flush 0.9% [Normal Saline Flush 0.9%] 10 ml IVP 0100,0900,1700 05/20/21 17:01 SCDs [RC] QSHIFT Evaluate and Treat OT [OT] Routine Evaluate and Treat PT [PT] Routine 05/20/21 17:07 Code Status [OTHERS] Routine 05/20/21 19:46 Telemetry-Discontinue [RC] .ONCE 05/21/21 07:45 MAGNESIUM [CHEM] Stat 05/21/21 07:46 PHOSPHORUS [CHEM] Stat 05/21/21 08:00 Dextrose 5%-0.45% NaCl [D5.45ns] 980 ml Potassium Chloride Inj [Potassium Chloride] 40 meq IV 125 mls/hr 05/22/21 05:00 CBC - COMP BLD CT W/AUTO DIFF [HEME] DAILYLAB 05/23/21 05:00 CBC - COMP BLD CT W/AUTO DIFF [HEME] DAILYLAB 05/24/21 05:00 CBC - COMP BLD CT W/AUTO DIFF [HEME] DAILYLAB 05/25/21 05:00 CBC - COMP BLD CT W/AUTO DIFF [HEME] DAILYLAB Subjective - Subjective Patient Reports: Other (Patient is awake alert but nonverbal. She does not seem aware of her environment. She appears to be resting comfortably in bed) Objective Vital Signs: Vital Signs - 24 hr 05/20/21 05/20/21 05/20/21 15:30 16:06 18:56 Temperature 36.6 C 36.3 C L Heart Rate 103 H 96 Heart Rate [ 97 Brachial] Respiratory 16 16 18 Rate Blood Pressure 109/81 H 126/76 Blood Pressure 141/78 H [Left Brachial artery] O2 Saturation 98 99 100 05/20/21 23:26 Temperature 37.0 C Heart Rate Heart Rate [ 109 H Brachial] Respiratory 17 Rate Blood Pressure Blood Pressure 130/71 [Left Brachial artery] O2 Saturation 100 Oxygen O2 Source Room air I&O (Last 24 Hrs): Intake and Output Totals x24h 05/19/21 05/20/21 05/21/21 23:59 23:59 23:59 Intake Total 1000 Output Total 0 150 Balance 1000 -150 General: Alert, Other (Awake but not aware of her environment. Nonverbal) HEENT: PERRLA, EOMI Neck: Supple, No JVD Neuro: Other (Left upper extremity with contractures) Cardiovascular: Regular rate, No murmurs Respiratory: Chest non-tender, No respiratory distress, Breath sounds nml Abdomen: Normal bowel sounds, Soft, No tenderness, No masses Extremities: No clubbing, No edema Comments/Notes: Decubitus ulcers on sacrum and heels - Results Results: Laboratory Results WBC 14.4 x10^3/uL (4.8-10.8) H 05/21/21 04:44 RBC 4.13 10^6/uL (4.20-5.40) L 05/21/21 04:44 Hgb 13.1 g/dL (12.0-16.0) 05/21/21 04:44 Hct 41.7 % (37.0-47.0) 05/21/21 04:44 MCV 101.0 fL (81.0-99.0) H 05/21/21 04:44 MCH 31.7 pg (27.0-31.0) H 05/21/21 04:44 MCHC 31.4 g/dL (32.0-36.0) L 05/21/21 04:44 RDW 14.1 % (12.0-15.0) 05/21/21 04:44 Plt Count 157 10^3/uL (130-450) 05/21/21 04:44 MPV 10.8 fL (7.9-10.8) 05/21/21 04:44 Neut # (Auto) 10.1 10^3/uL (1.5-6.6) H 05/21/21 04:44 Lymph # (Auto) 3.3 10^3/uL (1.5-3.5) 05/21/21 04:44 Cassia # (Auto) 0.6 10^3/uL (0.0-1.0) 05/21/21 04:44 Eos # (Auto) 0.2 10^3/uL (0.0-0.7) 05/21/21 04:44 Baso # (Auto) 0.1 10^3/uL (0.0-0.1) 05/21/21 04:44 Absolute Nucleated RBC 0.00 x10^3/uL 05/21/21 04:44 Nucleated RBC % 0.0 /100WBC 05/21/21 04:44 Sodium 160 mmol/L (135-145) H* 05/21/21 04:44 Potassium 3.3 mmol/L (3.5-5.0) L 05/21/21 04:44 Chloride 129 mmol/L (101-111) H* 05/21/21 04:44 Carbon Dioxide 22 mmol/L (21-32) 05/21/21 04:44 Anion Gap 9.0 (6-13) 05/21/21 04:44 BUN 42 mg/dL (6-20) H 05/21/21 04:44 Creatinine 1.0 mg/dL (0.4-1.0) 05/21/21 04:44 Estimated GFR (MDRD) 55 (>89) L 05/21/21 04:44 Glucose 168 mg/dL (70-100) H 05/21/21 04:44 Lactic Acid 2.1 mmol/L (0.5-2.2) 05/20/21 17:11 Calcium 8.4 mg/dL (8.5-10.3) L 05/21/21 04:44 Total Bilirubin 1.0 mg/dL (0.2-1.0) 05/20/21 16:18 AST 59 IU/L (10-42) H 05/20/21 16:18 ALT 132 IU/L (10-60) H 05/20/21 16:18 Alkaline Phosphatase 105 IU/L (42-121) 05/20/21 16:18 Total Creatine Kinase 134 IU/L (22-269) 05/20/21 16:18 Total Protein 6.9 g/dL (6.7-8.2) 05/20/21 16:18 Albumin 2.9 g/dL (3.2-5.5) L 05/20/21 16:18 Globulin 4.0 g/dL (2.1-4.2) 05/20/21 16:18 Albumin/Globulin Ratio 0.7 (1.0-2.2) L 05/20/21 16:18 Lipase 65 U/L (22-51) H 05/20/21 16:18 Urine Color YELLOW 05/20/21 17:36 Urine Clarity CLEAR (CLEAR) 05/20/21 17:36 Urine pH 5.5 PH (5.0-7.5) 05/20/21 17:36 Ur Specific Tuthill 1.025 (1.002-1.030) 05/20/21 17:36 Urine Protein NEGATIVE mg/dL (NEGATIVE) 05/20/21 17:36 Urine Glucose (UA) NEGATIVE mg/dL (NEGATIVE) 05/20/21 17:36 Urine Ketones NEGATIVE mg/dL (NEGATIVE) 05/20/21 17:36 Urine Occult Blood SMALL (NEGATIVE) H 05/20/21 17:36 Urine Nitrite NEGATIVE (NEGATIVE) 05/20/21 17:36 Urine Bilirubin NEGATIVE (NEGATIVE) 05/20/21 17:36 Urine Urobilinogen 0.2 (NORMAL) E.U./dL (NORMAL) 05/20/21 17:36 Ur Leukocyte Esterase NEGATIVE (NEGATIVE) 05/20/21 17:36 Urine RBC 0-5 /HPF (0-5) 05/20/21 17:36 Urine WBC 0-3 /HPF (0-5) 05/20/21 17:36 Ur Squamous Epith Cells RARE Squamous (<= Few) 05/20/21 17:36 Urine Bacteria None Seen /HPF (None Seen) 05/20/21 17:36 Ur Microscopic Review INDICATED 05/20/21 17:36 Urine Culture Comments NOT INDICATED 05/20/21 17:36 Nasal Adenovirus (PCR) NOT DETECTED 05/20/21 17:38 Nasal B. parapertussis DNA (PCR) NOT DETECTED 05/20/21 17:38 Nasal Coronavir 229E PCR NOT DETECTED 05/20/21 17:38 Nasal Coronavir HKU1 PCR NOT DETECTED 05/20/21 17:38 Nasal Coronavir NL63 PCR NOT DETECTED 05/20/21 17:38 Nasal Coronavir OC43 PCR NOT DETECTED 05/20/21 17:38 Nasal Enterovir/Rhinovir PCR NOT DETECTED 05/20/21 17:38 Nasal Influenza B PCR NOT DETECTED 05/20/21 17:38 Nasal Influenza A PCR NOT DETECTED 05/20/21 17:38 Nasal Parainfluen 1 PCR NOT DETECTED 05/20/21 17:38 Nasal Parainfluen 2 PCR NOT DETECTED 05/20/21 17:38 Nasal Parainfluen 3 PCR NOT DETECTED 05/20/21 17:38 Nasal Parainfluen 4 PCR NOT DETECTED 05/20/21 17:38 Nasal RSV (PCR) NOT DETECTED 05/20/21 17:38 Nasal B.pertussis DNA PCR NOT DETECTED 05/20/21 17:38 Nasal C.pneumoniae (PCR) NOT DETECTED 05/20/21 17:38 Flavio Human Metapneumo PCR NOT DETECTED 05/20/21 17:38 Nasal M.pneumoniae (PCR) NOT DETECTED 05/20/21 17:38 Nasal SARS-CoV-2 (PCR) NOT DETECTED 05/20/21 17:38 ABX Reporting Has patient been on IV antibiotics over the past 48 hours?: No
[2021-05-21] MEDS ORDERED: D5.45NS W/20 MEQ KCL 1,000 ML IV SCH (08:00)
[2021-05-21] MEDS ORDERED: POTASSIUM CHLORIDE INJ 40 MEQ in DEXTROSE 5%-0.45% NACL 980 ML IV SCH (08:00)
[2021-05-21 08:30] LABS: MAGNESIUM 2.9 mg/dL (1.7-2.8); PHOSPHORUS 2.2 mg/dL (2.5-4.6)
[2021-05-21] MEDS: SODIUM CHLORIDE FLUSH 0.9% 10 ML SYRINGE IVP SCH ×2 (08:56→16:42)
--- NOTE | 2021-05-21 14:44 | ADVANCE CARE PLANNING NOTE ---
Advance Care Planning - Planning Encounter Date: 05/20/21 Time: 18:00 Purpose: Discuss goal of care Decisional Capacity of the Patient: Unable to make decisions due to severe progression of frontotemporaldementia - Encounter Subjective/Patient's Story: Patient is a 70-year-old female with frontotemporal dementia diagnosed in 2013 who was brought to the ED via EMS. Home health nurse with [facility] came to the patient's house for the initial visit and upon seeing the state in which the patient was immediately called 911 to bring the patient to the emergency department for evaluation. The patient lives with her who has been attempting to take care of her by himself to this point. Since her diagnosis of frontotemporal dementia in 2013 the patient's health and overall clinical status has significantly declined. She is bedbound and nonverbal. Her reports that she has been unable to feed herself in the past 3 weeks. He has been attempting to feed her but she is barely unable to ingest anything. With attempts at feeding she has also been coughing. Upon presentation patient was very dehydrated and disheveled. She has stage III decubitus ulcers in the sacral area, ulcers on her heels. It appears patient is not really able to recognize family as there any no cues/ signs to indicate awareness to her surrounding. She is unable to communicate or express and need. Work-up in the ED included a BMP which showed a creatinine of 1.2 and a sodium level of 160. Had white blood cell count of 18. She was presented for admission for further treatment. Objective/Medical Story: Nonverbal at baseline. She is bedbound. Unable to feed herself. She has contractures in her upper extremities bilaterally. She has significant stage III decubitus ulcers. Dry oral mucosa. She does not seem aware of her surroundings. Goals of Care: Focus on keeping patient comfortable. Plan: Administer medication for comfort. Contact the hospice team on 05/23/2021 for transition to hospice care. Code Status: Do Not Attempt Resuscitation Time spent on advance care plannin
[2021-05-21] MEDS ORDERED: MORPHINE 2 MG/ML CARPUJECT IVP PRN (15:32)
[2021-05-21] MEDS ORDERED: LORazepam 2 MG/ML VIAL IVP PRN (15:32)
[2021-05-21] MEDS ORDERED: GLYCOPYRROLATE 1 MG/5 ML VIAL SUBQ PRN (15:32)
[2021-05-22] MEDS: SODIUM CHLORIDE FLUSH 0.9% 10 ML SYRINGE IVP SCH (01:15)
[2021-05-22 01:33] VITALS: BP 130/75
[2021-05-22 05:38] LABS: BASOPHILS # (AUTO) 0.1 10^3/uL (0.0-0.1); BASOPHILS % (AUTO) 0.8 %; EOSINOPHILS # (AUTO) 0.3 10^3/uL (0.0-0.7); EOSINOPHILS % (AUTO) 1.8 %; HCT - HEMATOCRIT 40.4 % (37.0-47.0); HGB - HEMOGLOBIN 12.5 g/dL (12.0-16.0); LYMPHOCYTES # (AUTO) 3.3 10^3/uL (1.5-3.5); LYMPHOCYTES % (AUTO) 23.6 %; MEAN CORPUSCULAR HEMOGLOBIN 31.1 pg (27.0-31.0); MEAN CORPUSCULAR HGB CONC 30.9 g/dL (32.0-36.0); MEAN CORPUSCULAR VOLUME 100.5 fL (81.0-99.0); MEAN PLATELET VOLUME 11.6 fL (7.9-10.8); MONOCYTES # (AUTO) 0.6 10^3/uL (0.0-1.0); MONOCYTES % (AUTO) 4.5 %; NEUTROPHILS # (AUTO) 9.5 10^3/uL (1.5-6.6); NEUTROPHILS % (AUTO) 68.3 %; NRBC ABSOLUTE COUNT (AUTO) 0.02 x10^3/uL; NUCLEATED RED BLOOD CELLS AUTO 0.1 /100WBC; PLT - PLATELET COUNT 146 10^3/uL (130-450); RED BLOOD COUNT 4.02 10^6/uL (4.20-5.40); WHITE BLOOD COUNT 13.9 x10^3/uL (4.8-10.8)
[2021-05-22 05:51] LABS: CALCIUM 8.7 mg/dL (8.5-10.3); CREATININE 0.9 mg/dL (0.4-1.0); POTASSIUM 3.9 mmol/L (3.5-5.0)
--- NOTE | 2021-05-22 08:18 | PROVIDER PROGRESS NOTE ---
Assessment/Plan - Problem List (1) Hypernatremia Assessment/Plan: Administer about 3 L of IV fluid. No change in sodium level (160). Patient is currently on comfortable measures (2) Dehydration Assessment/Plan: Administer about 3 L of IV fluid. No change in sodium level (160). Improved urine output Patient is currently on comfortable measures (3) Acute kidney injury Assessment/Plan: Resolved Creatinine is 0.9, BUN 32 with eGFR 62 (4) Frontotemporal dementia Assessment/Plan: Severe/progressive. After discussion with the patient's He requested the patient be comfort care. Patient will be switched to comfort care. We will contact the hospice team on 05/23/2021. (5) Sacral decubitus ulcer, stage III Assessment/Plan: Due to being bed-bound. Cleaned and dressed - Current Meds Current Meds: Current Medications Generic Name Dose Route Start Last Admin Trade Name Freq PRN Reason Stop Dose Admin Sodium Chloride 10 ml 05/20/21 17:00 05/22/21 01:15 Sodium Chloride Flush 0.9% 10 Ml Syringe IVP 10 ml 0100,0900,1700 [facility] Administration - Lab Result Fish Bone Diagrams: 05/22/21 05:15 05/22/21 05:15 - Additional Planning My Orders: My Active Orders 05/21/21 15:32 Comfort Care [RC] QSHIFT Oral Care - Nursing [RC] BID Glycopyrrolate [Robinul] 0.2 mg SUBQ Q4H PRN LORazepam INJ [Ativan Inj (Vial)] 1 mg IVP Q6H PRN Morphine Inj (Carpuject) [Morphine (Carpuject)] 2 mg IVP Q2HR PRN Subjective - Subjective Patient Reports: Other (Patient is awake alert but nonverbal. She does not seem aware of her environment. She appears to be resting comfortably in bed)) Objective Vital Signs: Vital Signs - 24 hr 05/22/21 01:24 Temperature 37.4 C Heart Rate [ 96 Brachial] Respiratory 22 Rate Blood Pressure 130/75 [Left Brachial artery] O2 Saturation 99 Oxygen O2 Source Room air I&O (Last 24 Hrs): Intake and Output Totals x24h 05/20/21 05/21/21 05/22/21 23:59 23:59 23:59 Intake Total 1000 2097.083 Output Total 0 450 200 Balance 1000 1647.083 -200 Comments/Notes: General: Alert, Other (Awake but not aware of her environment. Nonverbal) HEENT: PERRLA, EOMI Neck: Supple, No JVD Neuro: Other (Left upper extremity with contractures) Cardiovascular: Regular rate, No murmurs Respiratory: Chest non-tender, No respiratory distress, Breath sounds nml Abdomen: Normal bowel sounds, Soft, No tenderness, No masses Extremities: No clubbing, No edema Comments/Notes: Decubitus ulcers on sacrum and heels - Results Results: Laboratory Results WBC 13.9 x10^3/uL (4.8-10.8) H 05/22/21 05:15 RBC 4.02 10^6/uL (4.20-5.40) L 05/22/21 05:15 Hgb 12.5 g/dL (12.0-16.0) 05/22/21 05:15 Hct 40.4 % (37.0-47.0) 05/22/21 05:15 MCV 100.5 fL (81.0-99.0) H 05/22/21 05:15 MCH 31.1 pg (27.0-31.0) H 05/22/21 05:15 MCHC 30.9 g/dL (32.0-36.0) L 05/22/21 05:15 RDW 14.0 % (12.0-15.0) 05/22/21 05:15 Plt Count 146 10^3/uL (130-450) 05/22/21 05:15 MPV 11.6 fL (7.9-10.8) H 05/22/21 05:15 Neut # (Auto) 9.5 10^3/uL (1.5-6.6) H 05/22/21 05:15 Lymph # (Auto) 3.3 10^3/uL (1.5-3.5) 05/22/21 05:15 [place] # (Auto) 0.6 10^3/uL (0.0-1.0) 05/22/21 05:15 Eos # (Auto) 0.3 10^3/uL (0.0-0.7) 05/22/21 05:15 Baso # (Auto) 0.1 10^3/uL (0.0-0.1) 05/22/21 05:15 Absolute Nucleated RBC 0.02 x10^3/uL 05/22/21 05:15 Nucleated RBC % 0.1 /100WBC 05/22/21 05:15 Sodium 160 mmol/L (135-145) H* 05/22/21 05:15 Potassium 3.9 mmol/L (3.5-5.0) 05/22/21 05:15 Chloride 128 mmol/L (101-111) H* 05/22/21 05:15 Carbon Dioxide 21 mmol/L (21-32) 05/22/21 05:15 Anion Gap 11.0 (6-13) 05/22/21 05:15 BUN 32 mg/dL (6-20) H 05/22/21 05:15 Creatinine 0.9 mg/dL (0.4-1.0) 05/22/21 05:15 Estimated GFR (MDRD) 62 (>89) L 05/22/21 05:15 Glucose 107 mg/dL (70-100) H 05/22/21 05:15 Lactic Acid 2.1 mmol/L (0.5-2.2) 05/20/21 17:11 Calcium 8.7 mg/dL (8.5-10.3) 05/22/21 05:15 Phosphorus 2.2 mg/dL (2.5-4.6) L 05/21/21 04:44 Magnesium 2.9 mg/dL (1.7-2.8) H 05/21/21 04:44 Total Bilirubin 1.0 mg/dL (0.2-1.0) 05/20/21 16:18 AST 59 IU/L (10-42) H 05/20/21 16:18 ALT 132 IU/L (10-60) H 05/20/21 16:18 Alkaline Phosphatase 105 IU/L (42-121) 05/20/21 16:18 Total Creatine Kinase 134 IU/L (22-269) 05/20/21 16:18 Total Protein 6.9 g/dL (6.7-8.2) 05/20/21 16:18 Albumin 2.9 g/dL (3.2-5.5) L 05/20/21 16:18 Globulin 4.0 g/dL (2.1-4.2) 05/20/21 16:18 Albumin/Globulin Ratio 0.7 (1.0-2.2) L 05/20/21 16:18 Lipase 65 U/L (22-51) H 05/20/21 16:18 Urine Color YELLOW 05/20/21 17:36 Urine Clarity CLEAR (CLEAR) 05/20/21 17:36 Urine pH 5.5 PH (5.0-7.5) 05/20/21 17:36 Ur Specific [place] 1.025 (1.002-1.030) 05/20/21 17:36 Urine Protein NEGATIVE mg/dL (NEGATIVE) 05/20/21 17:36 Urine Glucose (UA) NEGATIVE mg/dL (NEGATIVE) 05/20/21 17:36 Urine Ketones NEGATIVE mg/dL (NEGATIVE) 05/20/21 17:36 Urine Occult Blood SMALL (NEGATIVE) H 05/20/21 17:36 Urine Nitrite NEGATIVE (NEGATIVE) 05/20/21 17:36 Urine Bilirubin NEGATIVE (NEGATIVE) 05/20/21 17:36 Urine Urobilinogen 0.2 (NORMAL) E.U./dL (NORMAL) 05/20/21 17:36 Ur Leukocyte Esterase NEGATIVE (NEGATIVE) 05/20/21 17:36 Urine RBC 0-5 /HPF (0-5) 05/20/21 17:36 Urine WBC 0-3 /HPF (0-5) 05/20/21 17:36 Ur Squamous Epith Cells RARE Squamous (<= Few) 05/20/21 17:36 Urine Bacteria None Seen /HPF (None Seen) 05/20/21 17:36 Ur Microscopic Review INDICATED 05/20/21 17:36 Urine Culture Comments NOT INDICATED 05/20/21 17:36 Nasal Adenovirus (PCR) NOT DETECTED 05/20/21 17:38 Nasal B. parapertussis DNA (PCR) NOT DETECTED 05/20/21 17:38 Nasal Coronavir 229E PCR NOT DETECTED 05/20/21 17:38 Nasal Coronavir HKU1 PCR NOT DETECTED 05/20/21 17:38 Nasal Coronavir NL63 PCR NOT DETECTED 05/20/21 17:38 Nasal Coronavir OC43 PCR NOT DETECTED 05/20/21 17:38 Nasal Enterovir/Rhinovir PCR NOT DETECTED 05/20/21 17:38 Nasal Influenza B PCR NOT DETECTED 05/20/21 17:38 Nasal Influenza A PCR NOT DETECTED 05/20/21 17:38 Nasal Parainfluen 1 PCR NOT DETECTED 05/20/21 17:38 Nasal Parainfluen 2 PCR NOT DETECTED 05/20/21 17:38 Nasal Parainfluen 3 PCR NOT DETECTED 12 17:38 Nasal Parainfluen 4 PCR NOT DETECTED 05/20/21 17:38 Nasal RSV (PCR) NOT DETECTED 05/20/21 17:38 Nasal B.pertussis DNA PCR NOT DETECTED 05/20/21 17:38 Nasal C.pneumoniae (PCR) NOT DETECTED 05/20/21 17:38 Flavio Human Metapneumo PCR NOT DETECTED 05/20/21 17:38 Nasal M.pneumoniae (PCR) NOT DETECTED 05/20/21 17:38 Nasal SARS-CoV-2 (PCR) NOT DETECTED 05/20/21 17:38 ABX Reporting Has patient been on IV antibiotics over the past 48 hours?: No
[2021-05-23] MEDS: SODIUM CHLORIDE FLUSH 0.9% 10 ML SYRINGE IVP SCH ×5 (01:30→18:45)
--- NOTE | 2021-05-23 08:37 | PROVIDER PROGRESS NOTE ---
Assessment/Plan - Problem List (1) Hypernatremia Assessment/Plan: Patient is currently on comfortable measures (2) Dehydration Assessment/Plan: Patient is currently on comfortable measures (3) Acute kidney injury Assessment/Plan: Patient is currently on comfortable measures (4) Frontotemporal dementia Assessment/Plan: Severe/progressive. After discussion with the patient's He requested the patient be comfort care. Patient will be switched to comfort care. Patient was seen by Dr. Nguyễn this afternoon 05/23/2021. The patient will be admitted to the hospitalist team once the issue of placement is addressed. The patient's does not have the means to afford the extra care needed at home and the house does not adequate to accommodate a hospital bed. Social work to help facilitate the process. (5) Sacral decubitus ulcer, stage III Assessment/Plan: Due to being bed-bound. Cleaned and dressed - Current Meds Current Meds: Current Medications Generic Name Dose Route Start Last Admin Trade Name Freq PRN Reason Stop Dose Admin Sodium Chloride 10 ml 05/20/21 17:00 05/23/21 01:30 Sodium Chloride Flush 0.9% 10 Ml Syringe IVP 10 ml 0100,0900,1700 [facility] Administration - Lab Result Fish Bone Diagrams: 05/22/21 05:15 05/22/21 05:15 - Additional Planning My Orders: My Active Orders 05/23/21 08:36 [facility] [place] Clerk Consult [CONS] Routine Subjective - Subjective Patient Reports: Other (Patient was asleep at the time of my visit. She would open her eyes but is nonresponsive. She is nonverbal. Temporal wasting and sunken cheeks noted. Skin appears stretched/taut over face. She is frail/cachectic) Objective Vital Signs: Oxygen O2 Source Room air I&O (Last 24 Hrs): Intake and Output Totals x24h 05/21/21 05/22/21 05/23/21 23:59 23:59 23:59 Intake Total 2097.083 340 Output Total 450 400 200 Balance 1647.083 -60 -200 Comments/Notes: General: Alert, Other (Awake but not aware of her environment. Nonverbal) HEENT: PERRLA, EOMI Neck: Supple, No JVD Neuro: Other (Left upper extremity with contractures) Cardiovascular: Regular rate, No murmurs Respiratory: Chest non-tender, No respiratory distress, Breath sounds nml Abdomen: Normal bowel sounds, Soft, No tenderness, No masses Extremities: No clubbing, No edema Comments/Notes: Decubitus ulcers on sacrum and heels - Results Results: Laboratory Results WBC 13.9 x10^3/uL (4.8-10.8) H 05/22/21 05:15 RBC 4.02 10^6/uL (4.20-5.40) L 05/22/21 05:15 Hgb 12.5 g/dL (12.0-16.0) 05/22/21 05:15 Hct 40.4 % (37.0-47.0) 05/22/21 05:15 MCV 100.5 fL (81.0-99.0) H 05/22/21 05:15 MCH 31.1 pg (27.0-31.0) H 05/22/21 05:15 MCHC 30.9 g/dL (32.0-36.0) L 05/22/21 05:15 RDW 14.0 % (12.0-15.0) 05/22/21 05:15 Plt Count 146 10^3/uL (130-450) 05/22/21 05:15 MPV 11.6 fL (7.9-10.8) H 05/22/21 05:15 Neut # (Auto) 9.5 10^3/uL (1.5-6.6) H 05/22/21 05:15 Lymph # (Auto) 3.3 10^3/uL (1.5-3.5) 05/22/21 05:15 [place] # (Auto) 0.6 10^3/uL (0.0-1.0) 05/22/21 05:15 Eos # (Auto) 0.3 10^3/uL (0.0-0.7) 05/22/21 05:15 Baso # (Auto) 0.1 10^3/uL (0.0-0.1) 05/22/21 05:15 Absolute Nucleated RBC 0.02 x10^3/uL 05/22/21 05:15 Nucleated RBC % 0.1 /100WBC 05/22/21 05:15 Sodium 160 mmol/L (135-145) H* 05/22/21 05:15 Potassium 3.9 mmol/L (3.5-5.0) 05/22/21 05:15 Chloride 128 mmol/L (101-111) H* 05/22/21 05:15 Carbon Dioxide 21 mmol/L (21-32) 05/22/21 05:15 Anion Gap 11.0 (6-13) 05/22/21 05:15 BUN 32 mg/dL (6-20) H 05/22/21 05:15 Creatinine 0.9 mg/dL (0.4-1.0) 05/22/21 05:15 Estimated GFR (MDRD) 62 (>89) L 05/22/21 05:15 Glucose 107 mg/dL (70-100) H 05/22/21 05:15 Lactic Acid 2.1 mmol/L (0.5-2.2) 05/20/21 17:11 Calcium 8.7 mg/dL (8.5-10.3) 05/22/21 05:15 Phosphorus 2.2 mg/dL (2.5-4.6) L 05/21/21 04:44 Magnesium 2.9 mg/dL (1.7-2.8) H 05/21/21 04:44 Total Bilirubin 1.0 mg/dL (0.2-1.0) 05/20/21 16:18 AST 59 IU/L (10-42) H 05/20/21 16:18 ALT 132 IU/L (10-60) H 05/20/21 16:18 Alkaline Phosphatase 105 IU/L (42-121) 05/20/21 16:18 Total Creatine Kinase 134 IU/L (22-269) 05/20/21 16:18 Total Protein 6.9 g/dL (6.7-8.2) 05/20/21 16:18 Albumin 2.9 g/dL (3.2-5.5) L 05/20/21 16:18 Globulin 4.0 g/dL (2.1-4.2) 05/20/21 16:18 Albumin/Globulin Ratio 0.7 (1.0-2.2) L 05/20/21 16:18 Lipase 65 U/L (22-51) H 05/20/21 16:18 Urine Color YELLOW 05/20/21 17:36 Urine Clarity CLEAR (CLEAR) 05/20/21 17:36 Urine pH 5.5 PH (5.0-7.5) 05/20/21 17:36 Ur Specific [place] 1.025 (1.002-1.030) 05/20/21 17:36 Urine Protein NEGATIVE mg/dL (NEGATIVE) 05/20/21 17:36 Urine Glucose (UA) NEGATIVE mg/dL (NEGATIVE) 05/20/21 17:36 Urine Ketones NEGATIVE mg/dL (NEGATIVE) 05/20/21 17:36 Urine Occult Blood SMALL (NEGATIVE) H 05/20/21 17:36 Urine Nitrite NEGATIVE (NEGATIVE) 05/20/21 17:36 Urine Bilirubin NEGATIVE (NEGATIVE) 05/20/21 17:36 Urine Urobilinogen 0.2 (NORMAL) E.U./dL (NORMAL) 05/20/21 17:36 Ur Leukocyte Esterase NEGATIVE (NEGATIVE) 05/20/21 17:36 Urine RBC 0-5 /HPF (0-5) 05/20/21 17:36 Urine WBC 0-3 /HPF (0-5) 05/20/21 17:36 Ur Squamous Epith Cells RARE Squamous (<= Few) 05/20/21 17:36 Urine Bacteria None Seen /HPF (None Seen) 05/20/21 17:36 Ur Microscopic Review INDICATED 05/20/21 17:36 Urine Culture Comments NOT INDICATED 05/20/21 17:36 Nasal Adenovirus (PCR) NOT DETECTED 05/20/21 17:38 Nasal B. parapertussis DNA (PCR) NOT DETECTED 05/20/21 17:38 Nasal Coronavir 229E PCR NOT DETECTED 05/20/21 17:38 Nasal Coronavir HKU1 PCR NOT DETECTED 05/20/21 17:38 Nasal Coronavir NL63 PCR NOT DETECTED 05/20/21 17:38 Nasal Coronavir OC43 PCR NOT DETECTED 05/20/21 17:38 Nasal Enterovir/Rhinovir PCR NOT DETECTED 05/20/21 17:38 Nasal Influenza B PCR NOT DETECTED 05/20/21 17:38 Nasal Influenza A PCR NOT DETECTED 05/20/21 17:38 Nasal Parainfluen 1 PCR NOT DETECTED 05/20/21 17:38 Nasal Parainfluen 2 PCR NOT DETECTED 05/20/21 17:38 Nasal Parainfluen 3 PCR NOT DETECTED 12/17/21 17:38 Nasal Parainfluen 4 PCR NOT DETECTED 05/20/21 17:38 Nasal RSV (PCR) NOT DETECTED 05/20/21 17:38 Nasal B.pertussis DNA PCR NOT DETECTED 05/20/21 17:38 Nasal C.pneumoniae (PCR) NOT DETECTED 05/20/21 17:38 Flavio Human Metapneumo PCR NOT DETECTED 05/20/21 17:38 Nasal M.pneumoniae (PCR) NOT DETECTED 05/20/21 17:38 Nasal SARS-CoV-2 (PCR) NOT DETECTED 05/20/21 17:38 ABX Reporting Has patient been on IV antibiotics over the past 48 hours?: No
[2021-05-24] MEDS: SODIUM CHLORIDE FLUSH 0.9% 10 ML SYRINGE IVP SCH ×3 (08:43→22:49)
--- NOTE | 2021-05-24 14:21 | PROVIDER PROGRESS NOTE ---
Assessment/Plan - Problem List (1) Frontotemporal dementia Assessment/Plan: pt has hx of Severe dementia, can not speech, she need total care, and has severe malnutrition, very poor quality of life. pt already on comfortable care status, and hospice care provider already saw pt. continue comfortable care, and continue support (2) Sacral decubitus ulcer, stage III Due to being bed-bound, severe malnutrition. nurse continue Cleaned and dressed, focus on comfortable care. (3)comfortable care only pt is already on comfortable care only status, will continue, continue PRN of Morphine and Ativan - Current Meds Current Meds: Current Medications Generic Name Dose Route Start Last Admin Trade Name Freq PRN Reason Stop Dose Admin Sodium Chloride 10 ml 05/20/21 17:00 05/24/21 08:43 Sodium Chloride Flush 0.9% 10 Ml Syringe IVP Not Given 0100,0900,1700 [facility] - Lab Result Fish Bone Diagrams: 05/22/21 05:15 05/22/21 05:15 - Additional Planning My Orders: My Active Orders 05/24/21 08:53 Morphine Oral Soln [Roxanol] 10 mg PO Q2HR PRN Subjective - Subjective Nursing Reports: Confused Objective Vital Signs: Oxygen O2 Source Room air I&O (Last 24 Hrs): Intake and Output Totals x24h 05/22/21 05/23/21 05/24/21 23:59 23:59 23:59 Intake Total 340 480 Output Total 400 425 150 Balance -60 -425 330 General: Alert, No acute distress HEENT: Atraumatic Neck: Supple Neuro: Alert Cardiovascular: Regular rate, Normal S1, Normal S2 Respiratory: Chest non-tender, No respiratory distress Abdomen: Normal bowel sounds, Soft Extremities: Normal pulses - Results Results: Laboratory Results WBC 13.9 x10^3/uL (4.8-10.8) H 05/22/21 05:15 RBC 4.02 10^6/uL (4.20-5.40) L 05/22/21 05:15 Hgb 12.5 g/dL (12.0-16.0) 05/22/21 05:15 Hct 40.4 % (37.0-47.0) 05/22/21 05:15 MCV 100.5 fL (81.0-99.0) H 05/22/21 05:15 MCH 31.1 pg (27.0-31.0) H 05/22/21 05:15 MCHC 30.9 g/dL (32.0-36.0) L 05/22/21 05:15 RDW 14.0 % (12.0-15.0) 05/22/21 05:15 Plt Count 146 10^3/uL (130-450) 05/22/21 05:15 MPV 11.6 fL (7.9-10.8) H 05/22/21 05:15 Neut # (Auto) 9.5 10^3/uL (1.5-6.6) H 05/22/21 05:15 Lymph # (Auto) 3.3 10^3/uL (1.5-3.5) 05/22/21 05:15 Carbon # (Auto) 0.6 10^3/uL (0.0-1.0) 05/22/21 05:15 Eos # (Auto) 0.3 10^3/uL (0.0-0.7) 05/22/21 05:15 Baso # (Auto) 0.1 10^3/uL (0.0-0.1) 05/22/21 05:15 Absolute Nucleated RBC 0.02 x10^3/uL 05/22/21 05:15 Nucleated RBC % 0.1 /100WBC 05/22/21 05:15 Sodium 160 mmol/L (135-145) H* 05/22/21 05:15 Potassium 3.9 mmol/L (3.5-5.0) 05/22/21 05:15 Chloride 128 mmol/L (101-111) H* 05/22/21 05:15 Carbon Dioxide 21 mmol/L (21-32) 05/22/21 05:15 Anion Gap 11.0 (6-13) 05/22/21 05:15 BUN 32 mg/dL (6-20) H 05/22/21 05:15 Creatinine 0.9 mg/dL (0.4-1.0) 05/22/21 05:15 Estimated GFR (MDRD) 62 (>89) L 05/22/21 05:15 Glucose 107 mg/dL (70-100) H 05/22/21 05:15 Lactic Acid 2.1 mmol/L (0.5-2.2) 05/20/21 17:11 Calcium 8.7 mg/dL (8.5-10.3) 05/22/21 05:15 Phosphorus 2.2 mg/dL (2.5-4.6) L 05/21/21 04:44 Magnesium 2.9 mg/dL (1.7-2.8) H 05/21/21 04:44 Total Bilirubin 1.0 mg/dL (0.2-1.0) 05/20/21 16:18 AST 59 IU/L (10-42) H 05/20/21 16:18 ALT 132 IU/L (10-60) H 05/20/21 16:18 Alkaline Phosphatase 105 IU/L (42-121) 05/20/21 16:18 Total Creatine Kinase 134 IU/L (22-269) 05/20/21 16:18 Total Protein 6.9 g/dL (6.7-8.2) 05/20/21 16:18 Albumin 2.9 g/dL (3.2-5.5) L 05/20/21 16:18 Globulin 4.0 g/dL (2.1-4.2) 05/20/21 16:18 Albumin/Globulin Ratio 0.7 (1.0-2.2) L 05/20/21 16:18 Lipase 65 U/L (22-51) H 05/20/21 16:18 Urine Color YELLOW 05/20/21 17:36 Urine Clarity CLEAR (CLEAR) 05/20/21 17:36 Urine pH 5.5 PH (5.0-7.5) 05/20/21 17:36 Ur Specific [place] 1.025 (1.002-1.030) 05/20/21 17:36 Urine Protein NEGATIVE mg/dL (NEGATIVE) 05/20/21 17:36 Urine Glucose (UA) NEGATIVE mg/dL (NEGATIVE) 05/20/21 17:36 Urine Ketones NEGATIVE mg/dL (NEGATIVE) 05/20/21 17:36 Urine Occult Blood SMALL (NEGATIVE) H 05/20/21 17:36 Urine Nitrite NEGATIVE (NEGATIVE) 05/20/21 17:36 Urine Bilirubin NEGATIVE (NEGATIVE) 05/20/21 17:36 Urine Urobilinogen 0.2 (NORMAL) E.U./dL (NORMAL) 05/20/21 17:36 Ur Leukocyte Esterase NEGATIVE (NEGATIVE) 05/20/21 17:36 Urine RBC 0-5 /HPF (0-5) 05/20/21 17:36 Urine WBC 0-3 /HPF (0-5) 05/20/21 17:36 Ur Squamous Epith Cells RARE Squamous (<= Few) 05/20/21 17:36 Urine Bacteria None Seen /HPF (None Seen) 05/20/21 17:36 Ur Microscopic Review INDICATED 12 17:36 Urine Culture Comments NOT INDICATED 05/20/21 17:36 Nasal Adenovirus (PCR) NOT DETECTED 05/20/21 17:38 Nasal B. parapertussis DNA (PCR) NOT DETECTED 05/20/21 17:38 Nasal Coronavir 229E PCR NOT DETECTED 05/20/21 17:38 Nasal Coronavir HKU1 PCR NOT DETECTED 05/20/21 17:38 Nasal Coronavir NL63 PCR NOT DETECTED 05/20/21 17:38 Nasal Coronavir OC43 PCR NOT DETECTED 05/20/21 17:38 Nasal Enterovir/Rhinovir PCR NOT DETECTED 05/20/21 17:38 Nasal Influenza B PCR NOT DETECTED 05/20/21 17:38 Nasal Influenza A PCR NOT DETECTED 05/20/21 17:38 Nasal Parainfluen 1 PCR NOT DETECTED 05/20/21 17:38 Nasal Parainfluen 2 PCR NOT DETECTED 05/20/21 17:38 Nasal Parainfluen 3 PCR NOT DETECTED 05/20/21 17:38 Nasal Parainfluen 4 PCR NOT DETECTED 05/20/21 17:38 Nasal RSV (PCR) NOT DETECTED 05/20/21 17:38 Nasal B.pertussis DNA PCR NOT DETECTED 05/20/21 17:38 Nasal C.pneumoniae (PCR) NOT DETECTED 05/20/21 17:38 Flavio Human Metapneumo PCR NOT DETECTED 05/20/21 17:38 Nasal M.pneumoniae (PCR) NOT DETECTED 05/20/21 17:38 Nasal SARS-CoV-2 (PCR) NOT DETECTED 05/20/21 17:38 ABX Reporting Has patient been on IV antibiotics over the past 48 hours?: No Current Medications - Current Medications Current Medications: Active Medications Acetaminophen (Acetaminophen 325 Mg Tablet) 650 mg PO Q4HR PRN PRN Reason: Pain 1 to 4 Glycopyrrolate (Glycopyrrolate 1 Mg/5 Ml Vial) 0.2 mg SUBQ Q4H PRN PRN Reason: Excessive secretions Lorazepam (Lorazepam 2 Mg/Ml Vial) 1 mg IVP Q6H PRN PRN Reason: Anxiety/Agitation Morphine Sulfate (Morphine [place] 10 Mg/0.5 Ml Oral Syringe) 10 mg PO Q2HR PRN PRN Reason: PAIN Ondansetron HCl (Ondansetron 4 Mg/2 Ml Vial) 4 mg IVP Q6HR PRN PRN Reason: Nausea / Vomiting Sodium Chloride (Sodium Chloride Flush 0.9% 10 Ml Syringe) 10 ml IVP PRN PRN PRN Reason: NEEDED PER PROVIDER ORDERS Sodium Chloride (Sodium Chloride Flush 0.9% 10 Ml Syringe) 10 ml IVP 0100,0900,1700 [facility] Last Admin: 05/24/21 08:43 Dose: Not Given Documented by: Sertraline [Zoloft] 25 mg ORAL DAILY 06/26/15 Donepezil [Aricept] 10 mg PO DAILY 06/08/16 Megestrol Acetate 40 mg PO DAILY 05/25/17 Memantine [Namenda] 5 mg PO DAILY 05/25/17 Mirabegron [Myrbetriq] 50 mg PO DAILY 05/25/17 Tamoxifen [Nolvadex] 20 mg PO DAILY 05/25/17
[2021-05-25] MEDS: SODIUM CHLORIDE FLUSH 0.9% 10 ML SYRINGE IVP SCH ×4 (00:50→23:42)
--- NOTE | 2021-05-25 15:02 | PROVIDER PROGRESS NOTE ---
Assessment/Plan - Problem List (1) Frontotemporal dementia Assessment/Plan: 05/25 we will continue comfortable care, consult with social professionals for replacement for hospice care. pt has hx of Severe dementia, can not speech, she need total care, and has severe malnutrition, very poor quality of life. pt already on comfortable care status, and hospice care provider already saw pt. continue comfortable care, and continue support (2) Sacral decubitus ulcer, stage III Due to being bed-bound, severe malnutrition. nurse continue Cleaned and dressed, focus on comfortable care. (3)comfortable care only pt is already on comfortable care only status, will continue, continue PRN of Morphine and Ativan - Current Meds Current Meds: Current Medications Generic Name Dose Route Start Last Admin Trade Name Freq PRN Reason Stop Dose Admin Sodium Chloride 10 ml 05/20/21 17:00 05/25/21 00:50 Sodium Chloride Flush 0.9% 10 Ml Syringe IVP 10 ml 0100,0900,1700 [facility] Administration - Lab Result Fish Bone Diagrams: 05/22/21 05:15 05/22/21 05:15 - Additional Planning My Orders: My Active Orders 05/24/21 14:22 Miscellaenous Nursing Order [RC] DAILY Subjective - Subjective Patient Reports: Resting Comfortably Objective Vital Signs: Oxygen O2 Source Room air I&O (Last 24 Hrs): Intake and Output Totals x24h 05/23/21 05/24/21 05/25/21 23:59 23:59 23:59 Intake Total 480 180 Output Total 425 450 925 Balance -425 30 -745 General: Alert, No acute distress HEENT: Atraumatic Neck: Supple Neuro: Alert Cardiovascular: Regular rate, Normal S1, Normal S2 Respiratory: Chest non-tender, No respiratory distress Abdomen: Normal bowel sounds, Soft Extremities: Normal pulses - Results Results: Laboratory Results WBC 13.9 x10^3/uL (4.8-10.8) H 05/22/21 05:15 RBC 4.02 10^6/uL (4.20-5.40) L 05/22/21 05:15 Hgb 12.5 g/dL (12.0-16.0) 05/22/21 05:15 Hct 40.4 % (37.0-47.0) 05/22/21 05:15 MCV 100.5 fL (81.0-99.0) H 05/22/21 05:15 MCH 31.1 pg (27.0-31.0) H 05/22/21 05:15 MCHC 30.9 g/dL (32.0-36.0) L 05/22/21 05:15 RDW 14.0 % (12.0-15.0) 05/22/21 05:15 Plt Count 146 10^3/uL (130-450) 05/22/21 05:15 MPV 11.6 fL (7.9-10.8) H 05/22/21 05:15 Neut # (Auto) 9.5 10^3/uL (1.5-6.6) H 05/22/21 05:15 Lymph # (Auto) 3.3 10^3/uL (1.5-3.5) 05/22/21 05:15 [place] # (Auto) 0.6 10^3/uL (0.0-1.0) 05/22/21 05:15 Eos # (Auto) 0.3 10^3/uL (0.0-0.7) 05/22/21 05:15 Baso # (Auto) 0.1 10^3/uL (0.0-0.1) 05/22/21 05:15 Absolute Nucleated RBC 0.02 x10^3/uL 05/22/21 05:15 Nucleated RBC % 0.1 /100WBC 05/22/21 05:15 Sodium 160 mmol/L (135-145) H* 05/22/21 05:15 Potassium 3.9 mmol/L (3.5-5.0) 05/22/21 05:15 Chloride 128 mmol/L (101-111) H* 05/22/21 05:15 Carbon Dioxide 21 mmol/L (21-32) 05/22/21 05:15 Anion Gap 11.0 (6-13) 05/22/21 05:15 BUN 32 mg/dL (6-20) H 05/22/21 05:15 Creatinine 0.9 mg/dL (0.4-1.0) 05/22/21 05:15 Estimated GFR (MDRD) 62 (>89) L 05/22/21 05:15 Glucose 107 mg/dL (70-100) H 05/22/21 05:15 Lactic Acid 2.1 mmol/L (0.5-2.2) 05/20/21 17:11 Calcium 8.7 mg/dL (8.5-10.3) 05/22/21 05:15 Phosphorus 2.2 mg/dL (2.5-4.6) L 05/21/21 04:44 Magnesium 2.9 mg/dL (1.7-2.8) H 05/21/21 04:44 Total Bilirubin 1.0 mg/dL (0.2-1.0) 05/20/21 16:18 AST 59 IU/L (10-42) H 05/20/21 16:18 ALT 132 IU/L (10-60) H 05/20/21 16:18 Alkaline Phosphatase 105 IU/L (42-121) 05/20/21 16:18 Total Creatine Kinase 134 IU/L (22-269) 05/20/21 16:18 Total Protein 6.9 g/dL (6.7-8.2) 05/20/21 16:18 Albumin 2.9 g/dL (3.2-5.5) L 05/20/21 16:18 Globulin 4.0 g/dL (2.1-4.2) 05/20/21 16:18 Albumin/Globulin Ratio 0.7 (1.0-2.2) L 05/20/21 16:18 Lipase 65 U/L (22-51) H 05/20/21 16:18 Urine Color YELLOW 05/20/21 17:36 Urine Clarity CLEAR (CLEAR) 05/20/21 17:36 Urine pH 5.5 PH (5.0-7.5) 05/20/21 17:36 Ur Specific [place] 1.025 (1.002-1.030) 05/20/21 17:36 Urine Protein NEGATIVE mg/dL (NEGATIVE) 05/20/21 17:36 Urine Glucose (UA) NEGATIVE mg/dL (NEGATIVE) 05/20/21 17:36 Urine Ketones NEGATIVE mg/dL (NEGATIVE) 05/20/21 17:36 Urine Occult Blood SMALL (NEGATIVE) H 05/20/21 17:36 Urine Nitrite NEGATIVE (NEGATIVE) 05/20/21 17:36 Urine Bilirubin NEGATIVE (NEGATIVE) 12/17/21 17:36 Urine Urobilinogen 0.2 (NORMAL) E.U./dL (NORMAL) 05/20/21 17:36 Ur Leukocyte Esterase NEGATIVE (NEGATIVE) 05/20/21 17:36 Urine RBC 0-5 /HPF (0-5) 05/20/21 17:36 Urine WBC 0-3 /HPF (0-5) 05/20/21 17:36 Ur Squamous Epith Cells RARE Squamous (<= Few) 05/20/21 17:36 Urine Bacteria None Seen /HPF (None Seen) 05/20/21 17:36 Ur Microscopic Review INDICATED 12 17:36 Urine Culture Comments NOT INDICATED 05/20/21 17:36 Nasal Adenovirus (PCR) NOT DETECTED 05/20/21 17:38 Nasal B. parapertussis DNA (PCR) NOT DETECTED 05/20/21 17:38 Nasal Coronavir 229E PCR NOT DETECTED 05/20/21 17:38 Nasal Coronavir HKU1 PCR NOT DETECTED 05/20/21 17:38 Nasal Coronavir NL63 PCR NOT DETECTED 05/20/21 17:38 Nasal Coronavir OC43 PCR NOT DETECTED 05/20/21 17:38 Nasal Enterovir/Rhinovir PCR NOT DETECTED 05/20/21 17:38 Nasal Influenza B PCR NOT DETECTED 05/20/21 17:38 Nasal Influenza A PCR NOT DETECTED 05/20/21 17:38 Nasal Parainfluen 1 PCR NOT DETECTED 05/20/21 17:38 Nasal Parainfluen 2 PCR NOT DETECTED 05/20/21 17:38 Nasal Parainfluen 3 PCR NOT DETECTED 05/20/21 17:38 Nasal Parainfluen 4 PCR NOT DETECTED 05/20/21 17:38 Nasal RSV (PCR) NOT DETECTED 05/20/21 17:38 Nasal B.pertussis DNA PCR NOT DETECTED 05/20/21 17:38 Nasal C.pneumoniae (PCR) NOT DETECTED 05/20/21 17:38 Flavio Human Metapneumo PCR NOT DETECTED 05/20/21 17:38 Nasal M.pneumoniae (PCR) NOT DETECTED 05/20/21 17:38 Nasal SARS-CoV-2 (PCR) NOT DETECTED 05/20/21 17:38 ABX Reporting Has patient been on IV antibiotics over the past 48 hours?: No Current Medications - Current Medications Current Medications: Active Medications Acetaminophen (Acetaminophen 325 Mg Tablet) 650 mg PO Q4HR PRN PRN Reason: Pain 1 to 4 Glycopyrrolate (Glycopyrrolate 1 Mg/5 Ml Vial) 0.2 mg SUBQ Q4H PRN PRN Reason: Excessive secretions Lorazepam (Lorazepam 2 Mg/Ml Vial) 1 mg IVP Q6H PRN PRN Reason: Anxiety/Agitation Morphine Sulfate (Morphine Shanta 10 Mg/0.5 Ml Oral Syringe) 10 mg PO Q2HR PRN PRN Reason: PAIN Ondansetron HCl (Ondansetron 4 Mg/2 Ml Vial) 4 mg IVP Q6HR PRN PRN Reason: Nausea / Vomiting Sodium Chloride (Sodium Chloride Flush 0.9% 10 Ml Syringe) 10 ml IVP PRN PRN PRN Reason: NEEDED PER PROVIDER ORDERS Sodium Chloride (Sodium Chloride Flush 0.9% 10 Ml Syringe) 10 ml IVP 0100,0900,1700 SAVANNA Last Admin: 05/25/21 00:50 Dose: 10 ml Documented by: Sertraline [Zoloft] 25 mg ORAL DAILY 06/26/15 Donepezil [Aricept] 10 mg PO DAILY 06/08/16 Megestrol Acetate 40 mg PO DAILY 05/25/17 Memantine [Namenda] 5 mg PO DAILY 05/25/17 Mirabegron [Myrbetriq] 50 mg PO DAILY 05/25/17 Tamoxifen [Nolvadex] 20 mg PO DAILY 05/25/17
[2021-05-25] MEDS: MORPHINE SOL 10 MG/0.5 ML ORAL SYRINGE PO PRN (23:41)
[2021-05-26] MEDS: SODIUM CHLORIDE FLUSH 0.9% 10 ML SYRINGE IVP SCH ×3 (09:30→23:36)
--- NOTE | 2021-05-26 12:09 | PROVIDER PROGRESS NOTE ---
Assessment/Plan - Problem List (1) Frontotemporal dementia Assessment/Plan: 05/26 continue comfortable care 05/25 we will continue comfortable care, consult with social professionals for replacement for hospice care. pt has hx of Severe dementia, can not speech, she need total care, and has severe malnutrition, very poor quality of life. pt already on comfortable care status, and hospice care provider already saw pt. continue comfortable care, and continue support (2) Sacral decubitus ulcer, stage III Due to being bed-bound, severe malnutrition. nurse continue Cleaned and dressed, focus on comfortable care. (3)comfortable care only 05/26 pt's daughter will visit pt from [facility]. pt's signed new POLST forum which focus on comfortable care. continue comfortable care, continue consult with social professionals for placement for hospice care. pt is already on comfortable care only status, will continue, continue PRN of Morphine and Ativan - Current Meds Current Meds: Current Medications Generic Name Dose Route Start Last Admin Trade Name Freq PRN Reason Stop Dose Admin Morphine Sulfate 10 mg 05/24/21 08:53 05/25/21 23:41 Morphine Shanta 10 Mg/0.5 Ml Oral Syringe PO 10 mg Q2HR PRN Administration PAIN Sodium Chloride 10 ml 05/20/21 17:00 05/25/21 23:42 Sodium Chloride Flush 0.9% 10 Ml Syringe IVP 10 ml 0100,0900,1700 [facility] Administration - Lab Result Fish Bone Diagrams: 05/22/21 05:15 05/22/21 05:15 Subjective - Subjective Patient Reports: Resting Comfortably Objective Vital Signs: Oxygen O2 Source Room air I&O (Last 24 Hrs): Intake and Output Totals x24h 05/24/21 05/25/21 05/26/21 23:59 23:59 23:59 Intake Total 480 180 60 Output Total 450 1125 250 Balance 30 -585 -190 General: Alert, No acute distress HEENT: Atraumatic Neck: Supple Neuro: Alert Cardiovascular: Regular rate, Normal S1, Normal S2 Respiratory: Chest non-tender, No respiratory distress Abdomen: Normal bowel sounds, Soft Extremities: Normal pulses - Results Results: Laboratory Results WBC 13.9 x10^3/uL (4.8-10.8) H 05/22/21 05:15 RBC 4.02 10^6/uL (4.20-5.40) L 05/22/21 05:15 Hgb 12.5 g/dL (12.0-16.0) 05/22/21 05:15 Hct 40.4 % (37.0-47.0) 05/22/21 05:15 MCV 100.5 fL (81.0-99.0) H 05/22/21 05:15 MCH 31.1 pg (27.0-31.0) H 05/22/21 05:15 MCHC 30.9 g/dL (32.0-36.0) L 05/22/21 05:15 RDW 14.0 % (12.0-15.0) 05/22/21 05:15 Plt Count 146 10^3/uL (130-450) 05/22/21 05:15 MPV 11.6 fL (7.9-10.8) H 05/22/21 05:15 Neut # (Auto) 9.5 10^3/uL (1.5-6.6) H 05/22/21 05:15 Lymph # (Auto) 3.3 10^3/uL (1.5-3.5) 05/22/21 05:15 [place] # (Auto) 0.6 10^3/uL (0.0-1.0) 05/22/21 05:15 Eos # (Auto) 0.3 10^3/uL (0.0-0.7) 05/22/21 05:15 Baso # (Auto) 0.1 10^3/uL (0.0-0.1) 05/22/21 05:15 Absolute Nucleated RBC 0.02 x10^3/uL 05/22/21 05:15 Nucleated RBC % 0.1 /100WBC 05/22/21 05:15 Sodium 160 mmol/L (135-145) H* 05/22/21 05:15 Potassium 3.9 mmol/L (3.5-5.0) 05/22/21 05:15 Chloride 128 mmol/L (101-111) H* 05/22/21 05:15 Carbon Dioxide 21 mmol/L (21-32) 05/22/21 05:15 Anion Gap 11.0 (6-13) 05/22/21 05:15 BUN 32 mg/dL (6-20) H 05/22/21 05:15 Creatinine 0.9 mg/dL (0.4-1.0) 05/22/21 05:15 Estimated GFR (MDRD) 62 (>89) L 05/22/21 05:15 Glucose 107 mg/dL (70-100) H 05/22/21 05:15 Lactic Acid 2.1 mmol/L (0.5-2.2) 05/20/21 17:11 Calcium 8.7 mg/dL (8.5-10.3) 05/22/21 05:15 Phosphorus 2.2 mg/dL (2.5-4.6) L 05/21/21 04:44 Magnesium 2.9 mg/dL (1.7-2.8) H 05/21/21 04:44 Total Bilirubin 1.0 mg/dL (0.2-1.0) 05/20/21 16:18 AST 59 IU/L (10-42) H 05/20/21 16:18 ALT 132 IU/L (10-60) H 05/20/21 16:18 Alkaline Phosphatase 105 IU/L (42-121) 05/20/21 16:18 Total Creatine Kinase 134 IU/L (22-269) 05/20/21 16:18 Total Protein 6.9 g/dL (6.7-8.2) 05/20/21 16:18 Albumin 2.9 g/dL (3.2-5.5) L 05/20/21 16:18 Globulin 4.0 g/dL (2.1-4.2) 05/20/21 16:18 Albumin/Globulin Ratio 0.7 (1.0-2.2) L 05/20/21 16:18 Lipase 65 U/L (22-51) H 05/20/21 16:18 Urine Color YELLOW 05/20/21 17:36 Urine Clarity CLEAR (CLEAR) 05/20/21 17:36 Urine pH 5.5 PH (5.0-7.5) 05/20/21 17:36 Ur Specific [place] 1.025 (1.002-1.030) 05/20/21 17:36 Urine Protein NEGATIVE mg/dL (NEGATIVE) 05/20/21 17:36 Urine Glucose (UA) NEGATIVE mg/dL (NEGATIVE) 05/20/21 17:36 Urine Ketones NEGATIVE mg/dL (NEGATIVE) 05/20/21 17:36 Urine Occult Blood SMALL (NEGATIVE) H 05/20/21 17:36 Urine Nitrite NEGATIVE (NEGATIVE) 05/20/21 17:36 Urine Bilirubin NEGATIVE (NEGATIVE) 05/20/21 17:36 Urine Urobilinogen 0.2 (NORMAL) E.U./dL (NORMAL) 05/20/21 17:36 Ur Leukocyte Esterase NEGATIVE (NEGATIVE) 05/20/21 17:36 Urine RBC 0-5 /HPF (0-5) 05/20/21 17:36 Urine WBC 0-3 /HPF (0-5) 05/20/21 17:36 Ur Squamous Epith Cells RARE Squamous (<= Few) 05/20/21 17:36 Urine Bacteria None Seen /HPF (None Seen) 05/20/21 17:36 Ur Microscopic Review INDICATED 05/20/21 17:36 Urine Culture Comments NOT INDICATED 05/20/21 17:36 Nasal Adenovirus (PCR) NOT DETECTED 05/20/21 17:38 Nasal B. parapertussis DNA (PCR) NOT DETECTED 05/20/21 17:38 Nasal Coronavir 229E PCR NOT DETECTED 05/20/21 17:38 Nasal Coronavir HKU1 PCR NOT DETECTED 05/20/21 17:38 Nasal Coronavir NL63 PCR NOT DETECTED 05/20/21 17:38 Nasal Coronavir OC43 PCR NOT DETECTED 05/20/21 17:38 Nasal Enterovir/Rhinovir PCR NOT DETECTED 05/20/21 17:38 Nasal Influenza B PCR NOT DETECTED 05/20/21 17:38 Nasal Influenza A PCR NOT DETECTED 05/20/21 17:38 Nasal Parainfluen 1 PCR NOT DETECTED 05/20/21 17:38 Nasal Parainfluen 2 PCR NOT DETECTED 05/20/21 17:38 Nasal Parainfluen 3 PCR NOT DETECTED 05/20/21 17:38 Nasal Parainfluen 4 PCR NOT DETECTED 05/20/21 17:38 Nasal RSV (PCR) NOT DETECTED 05/20/21 17:38 Nasal B.pertussis DNA PCR NOT DETECTED 05/20/21 17:38 Nasal C.pneumoniae (PCR) NOT DETECTED 05/20/21 17:38 Flavio Human Metapneumo PCR NOT DETECTED 05/20/21 17:38 Nasal M.pneumoniae (PCR) NOT DETECTED 05/20/21 17:38 Nasal SARS-CoV-2 (PCR) NOT DETECTED 05/20/21 17:38 ABX Reporting Has patient been on IV antibiotics over the past 48 hours?: No Current Medications - Current Medications Current Medications: Active Medications Acetaminophen (Acetaminophen 325 Mg Tablet) 650 mg PO Q4HR PRN PRN Reason: Pain 1 to 4 Glycopyrrolate (Glycopyrrolate 1 Mg/5 Ml Vial) 0.2 mg SUBQ Q4H PRN PRN Reason: Excessive secretions Lorazepam (Lorazepam 2 Mg/Ml Vial) 1 mg IVP Q6H PRN PRN Reason: Anxiety/Agitation Morphine Sulfate (Morphine Shanta 10 Mg/0.5 Ml Oral Syringe) 10 mg PO Q2HR PRN PRN Reason: PAIN Last Admin: 05/25/21 23:41 Dose: 10 mg Documented by: Ondansetron HCl (Ondansetron 4 Mg/2 Ml Vial) 4 mg IVP Q6HR PRN PRN Reason: Nausea / Vomiting Sodium Chloride (Sodium Chloride Flush 0.9% 10 Ml Syringe) 10 ml IVP PRN PRN PRN Reason: NEEDED PER PROVIDER ORDERS Sodium Chloride (Sodium Chloride Flush 0.9% 10 Ml Syringe) 10 ml IVP 0100,0900,1700 SAVANNA Last Admin: 05/25/21 23:42 Dose: 10 ml Documented by: Sertraline [Zoloft] 25 mg ORAL DAILY 06/26/15 Donepezil [Aricept] 10 mg PO DAILY 06/08/16 Megestrol Acetate 40 mg PO DAILY 05/25/17 Memantine [Namenda] 5 mg PO DAILY 05/25/17 Mirabegron [Myrbetriq] 50 mg PO DAILY 05/25/17 Tamoxifen [Nolvadex] 20 mg PO DAILY 05/25/17
[2021-05-26] MEDS: MORPHINE SOL 10 MG/0.5 ML ORAL SYRINGE PO PRN (19:43)
--- NOTE | 2021-05-27 08:46 | PROVIDER PROGRESS NOTE ---
Assessment/Plan - Problem List (1) Frontotemporal dementia Assessment/Plan: 05/27 pt is comfortable sleeping. pt hx of aphasia, pt need total care and feeding, hx of advance dementia with very poor quality of life. continue comfortable care and followup with hospice care. pt's can not provider care enough to meet pt's care required. consult social director for placement. 05/26 continue comfortable care 05/25 we will continue comfortable care, consult with social director for replacement for hospice care. pt has hx of Severe dementia, can not speech, she need total care, and has severe malnutrition, very poor quality of life. pt already on comfortable care status, and hospice care provider already saw pt. continue comfortable care, and continue support (2) Sacral decubitus ulcer, stage III Due to being bed-bound, severe malnutrition. nurse continue Cleaned and dressed, focus on comfortable care. (3)comfortable care only 05/26 pt's daughter will visit pt from [facility]. pt's signed new POLST forum which focus on comfortable care. continue comfortable care, continue consult with social director for placement for hospice care. pt is already on comfortable care only status, will continue, continue PRN of Morphine and Ativan - Current Meds Current Meds: Current Medications Generic Name Dose Route Start Last Admin Trade Name Freq PRN Reason Stop Dose Admin Morphine Sulfate 10 mg 05/24/21 08:53 05/26/21 19:43 Morphine Shanta 10 Mg/0.5 Ml Oral Syringe PO 10 mg Q2HR PRN Administration PAIN Sodium Chloride 10 ml 05/20/21 17:00 05/26/21 23:36 Sodium Chloride Flush 0.9% 10 Ml Syringe IVP 10 ml 0100,0900,1700 [facility] Administration - Lab Result Fish Bone Diagrams: 05/22/21 05:15 05/22/21 05:15 Subjective - Subjective Patient Reports: Resting Comfortably Objective Vital Signs: Oxygen O2 Source Room air I&O (Last 24 Hrs): Intake and Output Totals x24h 05/25/21 05/26/21 05/27/21 23:59 23:59 23:59 Intake Total 180 60 Output Total 1125 350 100 Balance -945 -290 -100 General: Alert, No acute distress HEENT: Atraumatic Neck: Supple Neuro: Alert Cardiovascular: Regular rate, Normal S1, Normal S2 Respiratory: Chest non-tender, No respiratory distress Abdomen: Normal bowel sounds, Soft Extremities: Normal pulses - Results Results: Laboratory Results WBC 13.9 x10^3/uL (4.8-10.8) H 05/22/21 05:15 RBC 4.02 10^6/uL (4.20-5.40) L 05/22/21 05:15 Hgb 12.5 g/dL (12.0-16.0) 05/22/21 05:15 Hct 40.4 % (37.0-47.0) 05/22/21 05:15 MCV 100.5 fL (81.0-99.0) H 05/22/21 05:15 MCH 31.1 pg (27.0-31.0) H 05/22/21 05:15 MCHC 30.9 g/dL (32.0-36.0) L 05/22/21 05:15 RDW 14.0 % (12.0-15.0) 05/22/21 05:15 Plt Count 146 10^3/uL (130-450) 05/22/21 05:15 MPV 11.6 fL (7.9-10.8) H 05/22/21 05:15 Neut # (Auto) 9.5 10^3/uL (1.5-6.6) H 05/22/21 05:15 Lymph # (Auto) 3.3 10^3/uL (1.5-3.5) 05/22/21 05:15 [place] # (Auto) 0.6 10^3/uL (0.0-1.0) 05/22/21 05:15 Eos # (Auto) 0.3 10^3/uL (0.0-0.7) 05/22/21 05:15 Baso # (Auto) 0.1 10^3/uL (0.0-0.1) 05/22/21 05:15 Absolute Nucleated RBC 0.02 x10^3/uL 05/22/21 05:15 Nucleated RBC % 0.1 /100WBC 05/22/21 05:15 Sodium 160 mmol/L (135-145) H* 05/22/21 05:15 Potassium 3.9 mmol/L (3.5-5.0) 05/22/21 05:15 Chloride 128 mmol/L (101-111) H* 05/22/21 05:15 Carbon Dioxide 21 mmol/L (21-32) 05/22/21 05:15 Anion Gap 11.0 (6-13) 05/22/21 05:15 BUN 32 mg/dL (6-20) H 05/22/21 05:15 Creatinine 0.9 mg/dL (0.4-1.0) 05/22/21 05:15 Estimated GFR (MDRD) 62 (>89) L 05/22/21 05:15 Glucose 107 mg/dL (70-100) H 05/22/21 05:15 Lactic Acid 2.1 mmol/L (0.5-2.2) 05/20/21 17:11 Calcium 8.7 mg/dL (8.5-10.3) 05/22/21 05:15 Phosphorus 2.2 mg/dL (2.5-4.6) L 05/21/21 04:44 Magnesium 2.9 mg/dL (1.7-2.8) H 05/21/21 04:44 Total Bilirubin 1.0 mg/dL (0.2-1.0) 05/20/21 16:18 AST 59 IU/L (10-42) H 05/20/21 16:18 ALT 132 IU/L (10-60) H 05/20/21 16:18 Alkaline Phosphatase 105 IU/L (42-121) 05/20/21 16:18 Total Creatine Kinase 134 IU/L (22-269) 05/20/21 16:18 Total Protein 6.9 g/dL (6.7-8.2) 05/20/21 16:18 Albumin 2.9 g/dL (3.2-5.5) L 05/20/21 16:18 Globulin 4.0 g/dL (2.1-4.2) 05/20/21 16:18 Albumin/Globulin Ratio 0.7 (1.0-2.2) L 05/20/21 16:18 Lipase 65 U/L (22-51) H 05/20/21 16:18 Urine Color YELLOW 05/20/21 17:36 Urine Clarity CLEAR (CLEAR) 05/20/21 17:36 Urine pH 5.5 PH (5.0-7.5) 05/20/21 17:36 Ur Specific [place] 1.025 (1.002-1.030) 05/20/21 17:36 Urine Protein NEGATIVE mg/dL (NEGATIVE) 05/20/21 17:36 Urine Glucose (UA) NEGATIVE mg/dL (NEGATIVE) 05/20/21 17:36 Urine Ketones NEGATIVE mg/dL (NEGATIVE) 05/20/21 17:36 Urine Occult Blood SMALL (NEGATIVE) H 05/20/21 17:36 Urine Nitrite NEGATIVE (NEGATIVE) 05/20/21 17:36 Urine Bilirubin NEGATIVE (NEGATIVE) 05/20/21 17:36 Urine Urobilinogen 0.2 (NORMAL) E.U./dL (NORMAL) 05/20/21 17:36 Ur Leukocyte Esterase NEGATIVE (NEGATIVE) 05/20/21 17:36 Urine RBC 0-5 /HPF (0-5) 05/20/21 17:36 Urine WBC 0-3 /HPF (0-5) 05/20/21 17:36 Ur Squamous Epith Cells RARE Squamous (<= Few) 05/20/21 17:36 Urine Bacteria None Seen /HPF (None Seen) 05/20/21 17:36 Ur Microscopic Review INDICATED 05/20/21 17:36 Urine Culture Comments NOT INDICATED 05/20/21 17:36 Nasal Adenovirus (PCR) NOT DETECTED 05/20/21 17:38 Nasal B. parapertussis DNA (PCR) NOT DETECTED 05/20/21 17:38 Nasal Coronavir 229E PCR NOT DETECTED 05/20/21 17:38 Nasal Coronavir HKU1 PCR NOT DETECTED 05/20/21 17:38 Nasal Coronavir NL63 PCR NOT DETECTED 05/20/21 17:38 Nasal Coronavir OC43 PCR NOT DETECTED 05/20/21 17:38 Nasal Enterovir/Rhinovir PCR NOT DETECTED 05/20/21 17:38 Nasal Influenza B PCR NOT DETECTED 05/20/21 17:38 Nasal Influenza A PCR NOT DETECTED 05/20/21 17:38 Nasal Parainfluen 1 PCR NOT DETECTED 05/20/21 17:38 Nasal Parainfluen 2 PCR NOT DETECTED 05/20/21 17:38 Nasal Parainfluen 3 PCR NOT DETECTED 05/20/21 17:38 Nasal Parainfluen 4 PCR NOT DETECTED 05/20/21 17:38 Nasal RSV (PCR) NOT DETECTED 05/20/21 17:38 Nasal B.pertussis DNA PCR NOT DETECTED 05/20/21 17:38 Nasal C.pneumoniae (PCR) NOT DETECTED 05/20/21 17:38 Flavio Human Metapneumo PCR NOT DETECTED 05/20/21 17:38 Nasal M.pneumoniae (PCR) NOT DETECTED 05/20/21 17:38 Nasal SARS-CoV-2 (PCR) NOT DETECTED 05/20/21 17:38 ABX Reporting Has patient been on IV antibiotics over the past 48 hours?: No Current Medications - Current Medications Current Medications: Active Medications Acetaminophen (Acetaminophen 325 Mg Tablet) 650 mg PO Q4HR PRN PRN Reason: Pain 1 to 4 Glycopyrrolate (Glycopyrrolate 1 Mg/5 Ml Vial) 0.2 mg SUBQ Q4H PRN PRN Reason: Excessive secretions Lorazepam (Lorazepam 2 Mg/Ml Vial) 1 mg IVP Q6H PRN PRN Reason: Anxiety/Agitation Morphine Sulfate (Morphine Shanta 10 Mg/0.5 Ml Oral Syringe) 10 mg PO Q2HR PRN PRN Reason: PAIN Last Admin: 05/26/21 19:43 Dose: 10 mg Documented by: Ondansetron HCl (Ondansetron 4 Mg/2 Ml Vial) 4 mg IVP Q6HR PRN PRN Reason: Nausea / Vomiting Sodium Chloride (Sodium Chloride Flush 0.9% 10 Ml Syringe) 10 ml IVP PRN PRN PRN Reason: NEEDED PER PROVIDER ORDERS Sodium Chloride (Sodium Chloride Flush 0.9% 10 Ml Syringe) 10 ml IVP 0100,0900,1700 SAVANNA Last Admin: 05/26/21 23:36 Dose: 10 ml Documented by: Sertraline [Zoloft] 25 mg ORAL DAILY 06/26/15 Donepezil [Aricept] 10 mg PO DAILY 06/08/16 Megestrol Acetate 40 mg PO DAILY 05/25/17 Memantine [Namenda] 5 mg PO DAILY 05/25/17 Mirabegron [Myrbetriq] 50 mg PO DAILY 05/25/17 Tamoxifen [Nolvadex] 20 mg PO DAILY 05/25/17
[2021-05-27] MEDS: MORPHINE SOL 10 MG/0.5 ML ORAL SYRINGE PO PRN ×3 (09:45→18:21)
[2021-05-27] MEDS: SODIUM CHLORIDE FLUSH 0.9% 10 ML SYRINGE IVP SCH ×2 (09:45→17:41)
[2021-05-27] MEDS ORDERED: ACETAMINOPHEN 1,000 MG/100 ML 100 ML IV PRN (10:06)
[2021-05-28] MEDS: MORPHINE SOL 10 MG/0.5 ML ORAL SYRINGE PO PRN ×2 (00:18→01:56)
[2021-05-28] MEDS: SODIUM CHLORIDE FLUSH 0.9% 10 ML SYRINGE IVP SCH (00:19)
--- NOTE | 2021-05-28 03:06 | DISCHARGE SUMMARY ---
Discharge Summary Admit Date: 05/20/21 Discharge Date: 05/28/21 Discharging Provider: Sylvie Mcelroy Primary Care Provider: Bridgette Reynolds Code Status: Do Not Attempt Resuscitation Discharge Disposition: 20 - DIAGNOSES Admission Diagnoses: Hypernatremia Dehydration Acute kidney injury Frontotemporal dementia Sacral decubitus ulcer, stage III Discharge Diagnoses with Status of Each Condition: Hypernatremia: Patient Dehydration: Patient Acute kidney injury: Patient Frontotemporal dementia: Patient Sacral decubitus ulcer, stage III: Patient - HPI History of Present Illness: Patient is a 70-year-old female with frontotemporal dementia diagnosed in 2013 who was brought to the ED via EMS. Home health nurse with [employer] came to the patient's house for the initial visit and upon seeing the state in which the patient was immediately called 911 to bring the patient to the emergency department for evaluation. The patient lives with her who has been attempting to take care of her by himself to this point. Since her diagnosis of frontotemporal dementia in 2013 the patient's health and overall clinical status has significantly declined. She is bedbound and nonverbal. Her reports that she has been unable to feed herself in the past 3 weeks. He has been attempting to feed her but she is barely unable to ingest anything. With attempts at feeding she has also been coughing. Upon presentation patient was very dehydrated and disheveled. She has stage III decubitus ulcers in the sacral area, ulcers on her heels. It appears patient is not really able to recognize family as there any no cues/ signs to indicate awareness to her surrounding. She is unable to communicate or express and need. Work-up in the ED included a BMP which showed a creatinine of 1.2 and a sodium level of 160. Had white blood cell count of 18. She was presented for admission for further treatment. - HOSPITAL COURSE Hospital Course: Patient was admitted to the [facility] floor and over 48 hours received 3 L of normal saline. There was no change in her sodium level of 160. Upon further discussion with the patient's he requested the patient be made comfort measures. All treatment was then directed towards keeping the patient comfortable. On 05/28/2021 it was brought to my attention that the patient was unresponsive. Upon presentation to bedside patient was unresponsive to tactile or verbal stimuli. Pupils were fixed dilated and unreactive to light. There were no breath sounds or heart sounds on auscultation. Carotid and radial pulses were absent bilaterally. Patient was pronounced at 2:50 AM on 05/28/2021. Patient's was notified. - ALLERGIES Allergies/Adverse Reactions: Allergies Allergy/AdvReac Type Severity Reaction Status Date / Time No Known Drug Allergies Allergy Verified 05/25/17 15:09 - MEDICATIONS Home Medications: Ambulatory Orders Medication Instructions Recorded Confirmed Sertraline [Zoloft] 25 mg ORAL DAILY 06/26/15 05/25/17 Donepezil [Aricept] 10 mg PO DAILY 06/08/16 05/25/17 Megestrol Acetate 40 mg PO DAILY 05/25/17 05/25/17 Memantine [Namenda] 5 mg PO DAILY 05/25/17 05/25/17 Mirabegron [Myrbetriq] 50 mg PO DAILY 05/25/17 05/25/17 Sulfacetamide 10% Ophth Drops 2 drops EACHEYE Q2H #1 bottle 05/25/17 [Sulfamide 10% Ophth Drops] Tamoxifen [Nolvadex] 20 mg PO DAILY 05/25/17 05/25/17 Cefpodoxime Proxetil [Vantin] 100 mg PO Q12H #14 tablet 05/05/21 - LABS Result Diagrams: 05/22/21 05:15 05/22/21 05:15
--- NOTE | 2021-05-28 03:07 | Discharge Plan ---
Discharge Plan Problem Reviewed?: Yes Disposition: 20 No Smoking: If you smoke, Please STOP! Call for help.
== END 2021-05-28 02:50 | disposition expired | DRG 640 ==
LOC: EDUNIT# → ED 15:21 → MS3 16:56
PROVIDERS: ADMIT Internal Medicine; ATTEND Internal Medicine
DX: E86.0 Dehydration (principal); L89.623 Pressure ulcer of left heel, stage 3; L89.613 Pressure ulcer of right heel, stage 3; L89.153 Pressure ulcer of sacral region, stage 3; N17.9 Acute kidney failure, unspecified; E87.0 Hyperosmolality and hypernatremia; G31.09 Other frontotemporal neurocognitive disorder; F02.80 Dementia in other diseases classified elsewhere, unspecified severity, without behavioral disturbance, psychotic disturbance, mood disturbance, and anxiety; F32.A Depression, unspecified; Z20.822 Contact with and (suspected) exposure to COVID-19; Z51.5 Encounter for palliative care; Z66 Do not resuscitate; Z74.01 Bed confinement status; Z79.899 Other long term (current) drug therapy; Z85.3 Personal history of malignant neoplasm of breast; Z90.10 Acquired absence of unspecified breast and nipple; Z90.49 Acquired absence of other specified parts of digestive tract
CPT/HCPCS: 0202U; 36415; 71045; 80048; 80053; 81001; 82550; 83605; 83690; 83735; 84100; 85025; 87040; 96374; 99281; 99285; A9270; J0131; J2060; 81003; 87086